=== PATIENT | male | born 1940 | race Caucasian/White ===

== ENCOUNTER 2023-08-28 08:54 | Inpatient (IN) | payer MEDICARE, OTHER, SELFPAY ==
[2023-08-28] VITALS (12 sets, daily range): BP systolic 92–126; BP diastolic 48–66; PULSE 60–85; RESP 16–20; TEMP 36.3–37.1; O2SAT 95–100; BMI 25.9
[2023-08-28 09:59] LABS: Basophils % 0.2 %; Eosinophils # 0.1 10^3/uL (0.0-0.8); Eosinophils % 0.7 %; Hematocrit 36.4 % (37-53); Lymphocytes # 0.8 10^3/uL (0.8-4.8); Lymphocytes % 5.9 %; Mean Corpuscular HGB Conc 33.2 g/dL (30-55); Mean Corpuscular Hemoglobin 29.7 pg (27-33); Mean Corpuscular Volume 89.4 fl (82-101); Mean Platelet Volume 9.7 fL (7.4-10.4); Monocytes # 1.2 10^3/uL (0.2-0.9); Monocytes % 8.7 %; Neutrophils % 83.6 %; Nucleated Red Blood Cells % 0 %; Platelet Count 213 10^3/cmm (157-399); Red Blood Count 4.07 10^6/uL (3.85-5.65); Red Cell Distribution Width 13.8 % (12.1-15.1); White Blood Count 13.64 10^3/uL (3.29-11.43)
--- NOTE | 2023-08-28 10:08 | ED_ITS ---
HPI - Nausea/Vomiting/Diarrhea General: Chief complaint: Nausea/Vomiting/Diarrhea Stated complaint: not eating,N/V/D Time Seen by Provider: 08/28/23 09:32 Source: patient Mode of arrival: ambulatory History of Present Illness: 82-year-old male presents emergency room nausea vomiting diarrhea for last 3 to 4 days. No hematochezia melena hematemesis coffee-ground emesis denies fever sweats chills no chest pain or shortness of breath. He has noticed that eating does make his symptoms worse. Patient complaining of generalized abdominal pain that he localizes to the left lower quadrant and periumbilical. MD elicited complaint: nausea and vomiting Description of diarrhea: mucus and semi-solid Associated nausea: Yes Associated abdominal pain: Yes Location of pain: LLQ Radiation: periumbilical Pain consistency: constant Severity: severe Quality: cramping Exacerbating factors: eating Relieving factors: other (Fasting) Associated symtoms: Reports anorexia, malaise and nausea; Denies altered mental status, anxiety, bloating, change in vision, chest pain, cough, diaphoresis, decreased urine output, dizziness, dysuria, epistaxis, fatigue, fecal incontinence, fevers/chills, headache(s), myalgias, numbness, palpitations, rash, short of breath, syncope, tenesmus, tinnitus or weakness Review of Systems Const: Reports: malaise; Denies: fever(s), chills, fatigue or diaphoresis Eyes: Denies: change in vision ENMT: Denies: tinnitus or epistaxis Card: Denies: chest pain, palpitations or syncope Resp: Denies: dyspnea GI: Reports: abdominal pain, nausea and vomiting; Denies: bloating or fecal incontinence : Denies: dysuria, urinary frequency or urinary urgency Musc: Denies: neck pain or back pain Skin/Breast: Denies: rash Neuro: Denies: headache(s) or dizziness Psych: Denies: anxiety PFSH ED PFSH: Medical History (Updated 09/03/23 @ 07:25 by Gentry Munguia DO) History of essential hypertension Surgical History (Updated 08/28/23 @ 13:23 by Kvng Montilla MD) History of knee replacement Family History (Updated 08/28/23 @ 13:25 by Kvng Montilla MD) Mother Dementia Social History (Updated 08/28/23 @ 13:23 by Kvng Montilla MD) Smoking and tobacco/nicotine status: never used tobacco/nicotine Alcohol intake: never Substance/Drug Use: never Physical Exam Const: COMMON NORMALS: no acute distress EXAM LIMITATIONS: no altered mental status GENERAL APPEARANCE: cooperative and comfortable ORIENTATION/CONSCIOUSNESS: Yes awake, Yes oriented to person, Yes oriented to place and Yes oriented to time HENMT: COMMON NORMALS: normocephalic, atraumatic and hearing grossly normal bilaterally HEAD & SCALP: normocephalic and atraumatic Resp: COMMON NORMALS: normal respiratory effort, No retractions, No use of accessory muscles and clear to auscultation bilaterally AUSCULTATION: clear to auscultation bilaterally Cardio: COMMON NORMALS: regular rate, regular rhythm and No murmurs present (Cardio) RATE: regular rate RHYTHM: regular rhythm GI: COMMON NORMALS: Soft to palpation and No hepatosplenomegaly present AUSCULTATION: Yes normoactive bowel sounds PALPATION: Yes Soft to palpation, No Tenderness to palpation present (GI), No Guarding due to palpation present (GI) and Yes No hepatosplenomegaly present Extremity: COMMON NORMALS: normal to inspection, capillary refill normal, no clubbing, cyanosis or edema, no calf tenderness and no pedal edema Neuro: SENSORIUM/ORIENTATION: Yes oriented to person, Yes oriented to place and Yes oriented to time Skin: COMMON NORMALS: no rashes or lesions noted GENERAL SKIN EXAM: no rashes or lesions noted Course Vital Signs: Vital signs: Vital Signs Temperature 98.0 F 08/31/23 15:51 Pulse Rate 65 08/31/23 15:51 Respiratory Rate 20 H 08/31/23 15:51 Blood Pressure 120/67 08/31/23 15:51 Pulse Oximetry 98 08/31/23 15:51 Oxygen Delivery Me thod Room Air 08/30/23 12:00 Oxygen Flow Rate 2 08/28/23 16:07 MDM - Nausea/Vomiting/Diarrhea Medical Decision Making Diverticulitis with perforation and abscess formation and acute kidney injury discussed with hospitalist under general surgery admit IV fluids for resuscitation General surgery has seen the patient in the emergency room. Orders written Medical Records I reviewed the patient's medical records. Lab Data I reviewed the patient's lab results. 08/31/23 02:58 08/31/23 02:58 Laboratory Results WBC 13.64 10^3/uL (3.29-11.43) H 08/28/23 09:42 RBC 4.07 10^6/uL (3.85-5.65) 08/28/23 09:42 Hgb 12.10 g/dL (11.27-16.99) 08/28/23 09:42 Hct 36.4 % (37-53) L 08/28/23 09:42 MCV 89.4 fl (82-101) 08/28/23 09:42 MCH 29.7 pg (27-33) 08/28/23 09:42 MCHC 33.2 g/dL (30-55) 08/28/23 09:42 RDW 13.8 % (12.1-15.1) 08/28/23 09:42 Plt Count 213 10^3/cmm (157-399) 08/28/23 09:42 MPV 9.7 fL (7.4-10.4) 08/28/23 09:42 Neut % (Auto) 83.6 % 08/28/23 09:42 Lymph % (Auto) 5.9 % 08/28/23 09:42 [place] % (Auto) 8.7 % 08/28/23 09:42 Eos % (Auto) 0.7 % 08/28/23 09:42 Baso % (Auto) 0.2 % 08/28/23 09:42 Neut # (Auto) 11.40 10^3/uL (1.8-7.7) H 08/28/23 09:42 Lymph # (Auto) 0.8 10^3/uL (0.8-4.8) 08/28/23 09:42 [place] # (Auto) 1.2 10^3/uL (0.2-0.9) H 08/28/23 09:42 Eos # (Auto) 0.1 10^3/uL (0.0-0.8) 08/28/23 09:42 Baso # (Auto) 0.0 10^3/uL (0.0-0.1) 08/28/23 09:42 Nucleated RBC % (auto) 0 % 08/28/23 09:42 Nucleated RBCs # 0.0 /100WBC 08/28/23 09:42 Sodium 135 mmol/L (136-145) L 08/28/23 09:42 Potassium 3.7 mmol/L (3.5-5.1) 08/28/23 09:42 Chloride 101 mmol/L (98-107) 08/28/23 09:42 Carbon Dioxide 18 mmol/L (22-29) L 08/28/23 09:42 Anion Gap 19.7 (5-19) H 08/28/23 09:42 BUN 88 mg/dL (8-23) H* 08/28/23 09:42 Creatinine 3.5 mg/dL (0.7-1.2) H 08/28/23 09:42 GFR Calculation Not Reportable 08/28/23 09:42 Glucose 119 mg/dL (65-115) H 08/28/23 09:42 Calculated Osmolality 308 mOsm/kg (285-295) H 08/28/23 09:42 Lactic Acid 0.9 mmol/L (0.5-2.2) 08/28/23 11:50 Calcium 8.4 mg/dL (8.5-10.5) L 08/28/23 09:42 Total Bilirubin 0.6 mg/dL (0.15-1.2) 08/28/23 09:42 AST 24 U/L (0-40) 08/28/23 09:42 ALT 26 U/L (0-41) 08/28/23 09:42 Alkaline Phosphatase 81 U/L (40-130) 08/28/23 09:42 Total Protein 6.9 g/dL (6.6-8.7) 08/28/23 09:42 Albumin 3.6 g/dL (3.5-5.2) 08/28/23 09:42 Globulin 3.3 g/dL (1.3-4.6) 08/28/23 09:42 Lipase 30 U/L (13-60) 08/28/23 09:42 Procalcitonin 0.75 ng/mL (0-0.5) H 08/28/23 09:42 Urine Color Yellow (Yellow) 08/28/23 11:50 Urine Appearance Sl hazy (CLEAR) A 08/28/23 11:50 Urine pH 5 (5-7) 08/28/23 11:50 Ur Specific Huntley 1.015 (1.005-1.030) 08/28/23 11:50 Urine Protein Trace (Negative) 08/28/23 11:50 Urine Glucose (UA) Norm (Normal) 08/28/23 11:50 Urine Ketones Negative (Negative) 08/28/23 11:50 Urine Blood Neg (Negative) 08/28/23 11:50 Urine Nitrate Negative (Negative) 08/28/23 11:50 Urine Bilirubin Neg (Negative) 08/28/23 11:50 Urine Urobilinogen Norm mg/dL (Negative) 08/28/23 11:50 Ur Leukocyte Esterase Negative (Negative) 08/28/23 11:50 Urine RBC 0-4 /hpf (0-2) H 08/28/23 11:50 Urine WBC 0-4 /hpf (0-5) H 08/28/23 11:50 Ur Squamous Epith Cells 0-4 /hpf (0-5) H 08/28/23 11:50 Amorphous Sediment 3+ /hpf 08/28/23 11:50 Urine Bacteria Trace /hpf (NONE) 08/28/23 11:50 All radiology interpretation(s) finalized by discharge Discharge Plan Discharge Patient Disposition: Admitted As Inpatient Admit Provider: Kvng Montilla Clinical Impression: KRYSTEN (acute kidney injury), Diverticulitis of intestine with perforation and abscess Condition: Stable Discharge Diet: Full LIquid Discharge Activity: Resume usual activity Coding Level of Care Code ED Medical Social Worker for Dante Reaves
[2023-08-28 10:14] LABS: Alanine Aminotransferase 26 U/L (0-41); Albumin Level 3.6 g/dL (3.5-5.2); Alkaline Phosphatase 81 U/L (40-130); Anion Gap 19.7 (5-19); Aspartate Amino Transferase 24 U/L (0-40); Calcium 8.4 mg/dL (8.5-10.5); Carbon Dioxide 18 mmol/L (22-29); Chloride 101 mmol/L (98-107); Globulin 3.3 g/dL (1.3-4.6); Glucose 119 mg/dL (65-115); Lipase 30 U/L (13-60); Osmolality Calculated 308 mOsm/kg (285-295); Potassium 3.7 mmol/L (3.5-5.1); Sodium 135 mmol/L (136-145); Total Bilirubin 0.6 mg/dL (0.15-1.2); Total Protein 6.9 g/dL (6.6-8.7)
[2023-08-28 10:27] LABS: Blood Urea Nitrogen 88 mg/dL (8-23)
--- NOTE | 2023-08-28 10:35 | CT_ITS ---
WS: [id number] CT ABDOMEN AND PELVIS NONCONTRAST HISTORY: Abdominal pain TECHNIQUE: Imaging performed through the abdomen and pelvis. Coronal and sagittal reformats are submi tted. All CT scans at [facility] use at least one of these dose optimization techniques: auto mated exposure control; mA and/or kV adjustment per patient size (includes targeted exams where dose is matched to clinical indication); or iterative reconstruction. DLP: 1074.87 mGy.cm COMPARISON: None available. Lower thorax: Hyperexpanded lungs. No pneumonia. Moderate cardiomegaly. Moderate hiatal hernia. Liver: Normal size liver. There are a few scattered areas of decreased attenuation which cannot be ch aracterized further on this exam. No bile duct dilatation. Gallbladder: Cholelithiasis without evidence for acute cholecystitis. No bile duct dilatation. Pancreas: Diffuse atrophy. Spleen: Normal. Adrenal glands: Normal. No mass. Right kidney: Mild perinephric stranding. No obstruction. Low-attenuation mass mid kidney is probably a cyst but cannot be characterized completely. Left kidney: Perinephric stranding. Low-attenuation masses and calcifications. No obstruction. Aorta: Mild atherosclerosis abdominal aorta with no aneurysm. GI tract: At the mesenteric root is a fluid collection and free air consistent with GI tract perforat ion. There is a developing abscess at the mesenteric root. The abscess measures at least 5.0 x 4.3 cm . This collection is an interloop abscess and contiguous with both the small bowel and very closely a ssociated with diverticulosis in the sigmoid colon. There are dilated adjacent small bowel loops cons istent with an ileus. There are multiple foci of air present. There is also mesenteric edema. The torie endix is not identified. There are numerous diverticula throughout the distal colon. Abdominal wall: Negative. No hernia. Pelvis: No free fluid in the pelvis. Urinary bladder is distended. Marked enlargement of the prostate gland measuring 7.2 x 7.2 cm encroaching into the base of the bladder. Patient has a large hydrocele . Hydrocele is displacing the testicles to the RIGHT. Osseous structures: Advanced degenerative changes throughout the lumbar spine. IMPRESSION: 1. Acute GI tract perforation with free air and interloop developing abscess in the central mesenter y. Developing abscess is encased by small bowel and adjacent sigmoid. Favor this is probably a perfor ation secondary to acute sigmoid diverticulitis. The appendix is not identified. 2. Cholelithiasis without acute cholecystitis. 3. Mild perinephric stranding. 4. Small bowel ileus.
[2023-08-28] MEDS: ondansetron 2 mg/ML SDV 2 mL 4 MG IVP (11:25)
[2023-08-28] MEDS: pantoprazole 40 mg SDV IVP ×2 (11:25→17:35)
[2023-08-28] MEDS: sodium chloride 0.9% 1,000 ML 999 ML IV (11:25)
[2023-08-28 12:10] LABS: Add Urine Culture? No; Add Urine Microscopic? YES; Amorphous Sediment Urine 3+ /hpf; Bacteria Urine TRACE /hpf; Bilirubin Urine Neg (Negative); Blood Urine Neg (Negative); Glucose Urine UA Norm (Normal); Ketones Urine Negative (Negative); Leukocyte Esterase Urine Negative (Negative); Nitrate Urine Negative (Negative); Protein Urine Trace (Negative); RBC Urine 0-4 /hpf (0-2); Specific Gravity, Urine 1.015 (1.005-1.030); Squamous Epithelial Cell Urine 0-4 /hpf (0-5); Urine Appearance SL Hazy (CLEAR); Urine Color Yellow (Yellow); Urobilinogen Urine Norm (Negative); WBC Urine 0-4 /hpf (0-5); pH Urine 5 (5-7)
[2023-08-28 12:16] LABS: Lactic Sepsis W/Reflex 0.9 mmol/L (0.5-2.2)
--- NOTE | 2023-08-28 12:28 | P.CONIM_ITS ---
Providers/Reason For Consult Consulting Physician/Specialty*: Dr. Henry Castro, DO/General surgery Reason for Consult*: Perforated diverticulitis History of Present Illness History of Present Illness Jesus Moura is a 82 year old male who presented to the hospital with 3-day h istory of lower abdominal pain nausea and vomiting. He reports that his pain is sharp and constant and radiates to his back. Palpation makes pain worse. Nothing makes pain better. He endorses nausea and vomiting but denies any hematemesis. He reports diarrhea but denies any hematochezia and/or melena. CT of the abdomen pelvis shows diverticulitis complicated by microperforation. There is no gross free air. He has never had diverticulitis before and has never had abdominal surgery. He denies any fever or chills Review of Systems General: Reports: 10 or more systems reviewed and unremarkable except in HPI and below Medications/Allergies Home Medications Medication Instructions Recorded Confirmed Last Taken Type lisinopril 10 2 tab PO QAM 08/28/23 08/28/23 08/28/23 History mg-hydrochlorothiazide 12.5 mg tablet tamsulosin 0.4 mg capsule 0.4 mg PO BID 08/28/23 08/28/23 08/28/23 History Allergies Allergy/AdvReac Type Severity Reaction Status Date / Time No Known Allergies Allergy Unverified 08/28/23 10:37 Vitals/I&O/Wt Last Vital Signs Temp 97.4 F L 08/28/23 09:25 Pulse 68 08/28/23 12:18 Resp 20 H 08/28/23 12:18 BP 103/48 08/28/23 12:18 Pulse Ox 99 08/28/23 12:18 O2 Del Method Room Air 08/28/23 12:18 Weight last 48 hrs Weight 181 lb Physical Exam Narrative: General : Patient is well developed , no acute distress, oriented x3 Head : Normal cephalic, a-traumatic. Ears : Pinnae and external canal are normal. He is hard of hearing l. Eyes : PERRLA, Sclera and injection are normal. No conjunctival discharge. Nose : Mucous membranes are without erythema. Throat : buccal mucosa is normal, gums are without significant recession or hypertrophy. Lungs : Equal chest rise bilaterally, no use of accessory muscles, trachea is midline. Cor : Rate and rhythm are normal. Abdomen : Soft, mild distention, mild tenderness to palpation suprapubically, no g/r/m Extremities : No edema, no cyanosis or clubbing, dorsalis pedis pulses are present bilaterally, non-tender to palpation of calves. Upper extremities are normal bilaterally. Back : non-tender to palpation, no CVA tenderness. Neuro : CN II - XII intact, Upper and lower extremities have equal and full strength Data 08/28/23 09:42 08/28/23 09:42 Micro: Microbiology 08/28/23 11:55 Blood Culture - Preliminary Blood SPECIMEN COLLECTED 08/28/23 11:50 Blood Culture - Preliminary Blood SPECIMEN COLLECTED A&P Assessment and plan (1) Diverticulitis of large intestine with complication: (2) KRYSTEN (acute kidney injury): Plan IV fluids IV antibiotics Pain control N.p.o. Conservative management for now. There is no free air on CT. He will need a colonoscopy in 4 to 6 weeks followed by elective sigmoidectomy. If he gets worse he will likely need a Nieves's procedure during this hospital stay. Medical management per hospitalist Coding Level of Care Code 08097 Diagnoses Diverticulitis of large intestine with complication K57.32 KRYSTEN (acute kidney injury) N17.9
[2023-08-28] MEDS: piperacillin-tazobactam 3.375 GM in sodium chloride 0.9% (plus) 50 ML IV ×2 (12:30→21:15)
--- NOTE | 2023-08-28 13:22 | P.HP_ITS ---
Providers/Chief Complaint Chief Complaint: not eating,N/V/D History of Present Illness Jesus Moura is a 82 year old male with a past medical history of hypertension, history of pyelonephritis, history of urinary retention, who presents to [facility] due to abdominal pain, distention, nausea, vomiting, liquid stools, since Thursday. Patient tells me that he has a regular bowel movement every day, but on Thursday he started developing abdominal pain, distention, he had bilious vomiting, no lightheadedness, dizziness, no chest pain, he tells me that since then he has had liquidy bowel movements, no bloody or black stools, he has had a poor appetite, increased abdominal distention, abdominal pain, denies a history of diverticulitis in the past, denies bloody or black stools, no history of colonoscopy, no history of EGD, in the emergency room he was diagnosed with perforated diverticulitis, with abscess, general surgery has been consulted, due to his KRYSTEN, hospitalist team has been called for admission, he has received antibiotic therapy, currently he is alert and awake, following all commands, daughter is at bedside Review of Systems Const: Denies: fever(s) or chills Card: Denies: chest pain Resp: Denies: dyspnea GI: Reports: abdominal pain, nausea, vomiting and diarrhea : Denies: flank pain Musc: Denies: neck pain or back pain Skin/Breast: Denies: rash Neuro: Denies: headache(s) or numbness in extremities Endo: Denies: polyuria Medications/Allergies Home Medications Medication Instructions Recorded Confirmed Last Taken Type lisinopril 10 2 tab PO QAM 08/28/23 08/28/23 08/28/23 History mg-hydrochlorothiazide 12.5 mg tablet tamsulosin 0.4 mg capsule 0.4 mg PO BID 08/28/23 08/28/23 08/28/23 History Allergies Allergy/AdvReac Type Severity Reaction Status Date / Time No Known Allergies Allergy Unverified 08/28/23 10:37 PFSH Acute PFSH: Medical History (Updated 08/28/23 @ 13:26 by Kvng Montilla MD) History of essential hypertension Surgical History (Updated 08/28/23 @ 13:23 by Kvng Montilla MD) History of knee replacement Family History (Updated 08/28/23 @ 13:25 by Kvng Montilla MD) Mother Dementia Social History (Updated 08/28/23 @ 13:23 by Kvng Montilla MD) Smoking and tobacco/nicotine status: never used tobacco/nicotine Alcohol intake: never Substance/Drug Use: never Vitals/I&O/Wt Last Vital Signs Temp 97.4 F L 08/28/23 09:25 Pulse 68 08/28/23 12:18 Resp 20 H 08/28/23 12:18 BP 103/48 08/28/23 12:18 Pulse Ox 99 08/28/23 12:18 O2 Del Method Room Air 08/28/23 12:18 Weight last 48 hrs Weight 82.1 kg Physical Exam Const: COMMON NORMALS: no acute distress and patient oriented x3 HENMT: COMMON NORMALS: normocephalic HEAD & SCALP: normocephalic Eye: COMMON NORMALS: Equal, round and reactive pupils present and EOMs intact bilaterally Neck/C-Spine: COMMON NORMALS: no JVD Lymph: LYMPHATIC: no lymphadenopathy noted Chest: COMMONS NORMALS: normal inspection of the chest Resp: COMMON NORMALS: normal respiratory effort, No retractions, No use of accessory muscles and clear to auscultation bilaterally AUSCULTATION: clear to auscultation bilaterally Cardio: COMMON NORMALS: regular rate, regular rhythm, S1 normal heart sound pr esent and S2 normal heart sound present RATE: regular rate RHYTHM: regular rhythm HEART SOUNDS: S1 normal heart sound present and S2 normal heart sound present GI: OTHER: Abdomen is soft, distended, decreased bowel sounds in all 4 quadrants, diffuse t enderness, no guarding, no rebound, no rigidity : COMMON NORMALS: Yes no CVA tenderness Extremity: COMMON NORMALS: no pedal edema Neuro: COMMON NORMALS: patient oriented x3, CN's II-XII intact bilaterally, moves all extremities and no focal motor deficits Psych: COMMON NORMALS: mental status grossly normal Data 08/28/23 09:42 08/28/23 09:42 Micro: Microbiology 08/28/23 11:55 Blood Culture - Preliminary Blood SPECIMEN COLLECTED 08/28/23 11:50 Blood Culture - Preliminary Blood SPECIMEN COLLECTED A&P Assessment and plan (1) Diverticulitis of large intestine with complication: (2) Diverticulitis of intestine with perforation and abscess: (3) KRYSTEN (acute kidney injury): Plan IMPRESSION: 1.? Acute GI tract perforation with free air and interloop developing abscess in the central mesentery. Developing abscess is encased by small bowel and adjacent sigmoid. Favor this is probably a perforation secondary to acute sigmoid diverticulitis. The appendix is not identified. 2.? Cholelithiasis without acute cholecystitis. 3.? Mild perinephric stranding. 4.? Small bowel ileus. Perforated diverticulitis, with intra-abdominal abscess ? Plan ? Keep n.p.o., ?, IV fluids at 125 cc ? Place Moore catheter monitor urine output monitor creatinine monitor potassium, ? Broad-spectrum antibiotic therapy vancomycin, Zosyn, ? Serial abdominal exams, ? Monitor urine output, ? Lovenox for DVT prophylaxis, ? Full code, ? General surgery has been consulted, Attestations Medical Necessity Statement*: Patient requires hospitalization for perforated diverticulitis, with intra- abdominal abscess, inpatient, greater than 2 midnights Diagnoses Diverticulitis of large intestine with complication K57.32 Diverticulitis of intestine with perforation and abscess K57.80 KRYSTEN (acute kidney injury) N17.9
[2023-08-28 14:17] LABS: Procalcitonin 0.75 ng/mL (0-0.5)
--- NOTE | 2023-08-28 17:28 | PC.PHAR ---
[id number] VANCOMYCIN - pt renal function requires longer frequency. standard dosing requested, 1250 q 48h trough before 3rd dose 09/01 @1648
[2023-08-28] MEDS: sodium chloride 0.9% 1,000 ML 125 ML IV (17:36)
[2023-08-28] MEDS: vancomycin 1,250 MG/250 ML PIGGYBACK 250 MG IV (17:37)
[2023-08-28] MEDS: tamsulosin 0.4 mg Capsule PO (17:38)
[2023-08-28] MEDS: enoxaparin 30 mg/0.3 mL Syringe SUBCUT (17:38)
[2023-08-28] MEDS: morphine 4 mg/mL SDV 1 mL 2 MG IVP (18:42)
[2023-08-29] VITALS (9 sets, daily range): BP systolic 97–119; BP diastolic 49–63; PULSE 57–84; RESP 17–20; TEMP 36.4–37.2; O2SAT 96–99
[2023-08-29] MEDS: sodium chloride 0.9% 1,000 ML 125 ML IV ×4 (00:48→22:48)
[2023-08-29] MEDS: pantoprazole 40 mg SDV IVP ×2 (04:44→16:36)
[2023-08-29 05:29] LABS: Basophils % 0.4 %; Eosinophils # 0.1 10^3/uL (0.0-0.8); Eosinophils % 1.4 %; Hematocrit 32.2 % (37-53); Lymphocytes # 1.2 10^3/uL (0.8-4.8); Lymphocytes % 11.9 %; Mean Corpuscular Hemoglobin 28.8 pg (27-33); Mean Corpuscular Volume 89.9 fl (82-101); Mean Platelet Volume 9.9 fL (7.4-10.4); Monocytes # 1.1 10^3/uL (0.2-0.9); Monocytes % 10.3 %; Neutrophils # 7.67 10^3/uL (1.8-7.7); Neutrophils % 74.9 %; Nucleated Red Blood Cells % 0 %; Platelet Count 184 10^3/cmm (157-399); Red Blood Count 3.58 10^6/uL (3.85-5.65); Red Cell Distribution Width 13.9 % (12.1-15.1); White Blood Count 10.23 10^3/uL (3.29-11.43)
[2023-08-29 05:50] LABS: Estmated Average Glucose 111; Hemoglobin A1C 5.5 % (4.0-6.0)
[2023-08-29 06:01] LABS: Cholesterol 98 mg/dL (0-200); HDL Cholesterol 14 mg/dL (60-100); LDL Cholesterol Calculated 55 mg/dL (50-129); LDL HDL Ratio 3.93 RATIO (0.00-3.22); Lactic Sepsis W/Reflex 0.6 mmol/L (0.5-2.2); Triglycerides 143 mg/dL (0-150)
[2023-08-29 06:10] LABS: Alanine Aminotransferase 23 U/L (0-41); Albumin Level 2.8 g/dL (3.5-5.2); Alkaline Phosphatase 90 U/L (40-130); Aspartate Amino Transferase 24 U/L (0-40); Blood Urea Nitrogen 66 mg/dL (8-23); Calcium 7.8 mg/dL (8.5-10.5); Carbon Dioxide 16 mmol/L (22-29); Chloride 111 mmol/L (98-107); Globulin 2.8 g/dL (1.3-4.6); Glucose 91 mg/dL (65-115); Magnesium 1.8 mg/dL (1.7-2.3); Osmolality Calculated 307 mOsm/kg (285-295); Sodium 139 mmol/L (136-145); Total Bilirubin 0.6 mg/dL (0.15-1.2); Total Protein 5.6 g/dL (6.6-8.7)
[2023-08-29] MEDS: piperacillin-tazobactam 3.375 GM in sodium chloride 0.9% (plus) 50 ML IV ×2 (08:16→21:09)
[2023-08-29] MEDS: tamsulosin 0.4 mg Capsule PO ×2 (08:17→16:36)
--- NOTE | 2023-08-29 11:26 | PM.PN ---
Subjective Subjective: Patient seen and examined. He reports minimal to no abdominal pain. Denies any nausea or vomiting. Positive flatus. No bowel movement yet Vitals/I&O/Wt Last Vital Signs Temp 97.5 F L 08/29/23 07:49 Pulse 59 L 08/29/23 07:49 Resp 20 H 08/29/23 07:49 BP 103/49 08/29/23 07:49 Pulse Ox 96 08/29/23 07:49 O2 Del Method Room Air 08/29/23 07:49 O2 Flow Rate 2 08/28/23 16:07 08/28/23 08/29/23 08/29/23 22:59 06:59 14:59 Intake Total 1300 / 1300 3413 / 4713 1000 / 1000 Output Total 1125 / 1125 750 / 1875 Balance 175 / 175 2663 / 2838 1000 / 1000 Weight last 48 hrs Weight 181 lb Physical Exam Narrative: General: No acute distress, awake alert and oriented x3 Abdomen: Soft, mildly distended, nontender, no guarding rebound or masses Data 08/29/23 04:46 08/29/23 04:46 Micro: Microbiology 08/28/23 11:55 Blood Culture - Preliminary Blood SPECIMEN COLLECTED 08/28/23 11:50 Blood Culture - Preliminary Blood SPECIMEN COLLECTED A&P Assessment and plan (1) Diverticulitis of large intestine with complication: (2) KRYSTEN (acute kidney injury): Plan IV fluids IV antibiotics Pain control Clear liquid diet Conservative management for now. There is no free air on CT. He will need a colonoscopy in 4 to 6 weeks followed by elective sigmoidectomy. If he gets worse he will likely need a Nieves's procedure during this hospital stay. Medical management per hospitalist Attestations Medical Necessity Statement*: Per primary Coding Level of Care Code 97283 Diagnoses Diverticulitis of large intestine with complication K57.32 KRYSTEN (acute kidney injury) N17.9
--- NOTE | 2023-08-29 13:06 | PM.PN ---
Subjective Subjective: Patient was seen this morning, he is sitting up to the side of the bed, family members at bedside, he does report that he had 1 episode of passing gas, has not passed any stool, no nausea, no vomiting Vitals/I&O/Wt Last Vital Signs Temp 97.7 F 08/29/23 11:38 Pulse 84 08/29/23 11:38 Resp 20 H 08/29/23 11:38 BP 117/63 08/29/23 11:38 Pulse Ox 98 08/29/23 11:38 O2 Del Method Room Air 08/29/23 11:38 O2 Flow Rate 2 08/28/23 16:07 08/28/23 08/29/23 08/29/23 22:59 06:59 14:59 Intake Total 1300 / 1300 3413 / 4713 1110 / 1110 Output Total 1125 / 1125 750 / 1875 Balance 175 / 175 2663 / 2838 1110 / 1110 Weight last 48 hrs Weight 82.1 kg Physical Exam Const: COMMON NORMALS: no acute distress and patient oriented x3 Resp: COMMON NORMALS: normal respiratory effort, No retractions, No use of accessory muscles and clear to auscultation bilaterally AUSCULTATION: clear to auscultation bilaterally Cardio: COMMON NORMALS: regular rate, regular rhythm, S1 normal heart sound present and S2 normal heart sound present RATE: regular rate RHYTHM: regular rhythm HEART SOUNDS: S1 normal heart sound present and S2 normal heart sound present GI: OTHER: Abdomen is soft, distended, decreased bowel sounds in all 4 quadrants, no guarding, no rebound, nor rigidity Extremity: COMMON NORMALS: no pedal edema Neuro: COMMON NORMALS: patient oriented x3 Psych: COMMON NORMALS: mental status grossly normal Data 08/29/23 04:46 08/29/23 04:46 Micro: Microbiology 08/28/23 11:50 Blood Culture - Preliminary Blood NEGATIVE TO DATE 08/28/23 11:55 Blood Culture - Preliminary Blood NEGATIVE TO DATE A&P Assessment and plan (1) Diverticulitis of large intestine with complication: (2) Diverticulitis of intestine with perforation and abscess: (3) KRYSTEN (acute kidney injury): Plan IMPRESSION: 1.? Acute GI tract perforation with free air and interloop developing abscess in the central mesentery. Developing abscess is encased by small bowel and adjacent sigmoid. Favor this is probably a perforation secondary to acute sigmoid diverticulitis. The appendix is not identified. 2.? Cholelithiasis without acute cholecystitis. 3.? Mild perinephric stranding. 4.? Small bowel ileus. Perforated diverticulitis, with intra-abdominal abscess ? Plan ? Keep n.p.o., ?, IV fluids at 125 cc ? Place Moore catheter monitor urine output monitor creatinine monitor potassium, ? Broad-spectrum antibiotic therapy vancomycin, Zosyn, ? Serial abdominal exams, ? Monitor urine output, ? Lovenox for DVT prophylaxis, ? Full code, ? General surgery has been consulted, Attestations Medical Necessity Statement*: Patient requires hospitalization for perforated diverticulitis, KRYSTEN, Diagnoses Diverticulitis of large intestine with complication K57.32 Diverticulitis of intestine with perforation and abscess K57.80 KRYSTEN (acute kidney injury) N17.9
[2023-08-29] MEDS: enoxaparin 30 mg/0.3 mL Syringe SUBCUT (16:36)
[2023-08-30] VITALS (8 sets, daily range): BP systolic 108–157; BP diastolic 51–73; PULSE 48–90; RESP 18–20; TEMP 36.2–37.2; O2SAT 94–99
[2023-08-30] MEDS: pantoprazole 40 mg SDV IVP ×2 (03:28→17:54)
[2023-08-30 04:59] LABS: Basophils # 0.1 10^3/uL (0.0-0.1); Basophils % 0.6 %; Eosinophils # 0.1 10^3/uL (0.0-0.8); Eosinophils % 1.6 %; Hematocrit 31.9 % (37-53); Lymphocytes # 1.5 10^3/uL (0.8-4.8); Lymphocytes % 16.6 %; Mean Corpuscular HGB Conc 32.6 g/dL (30-55); Mean Corpuscular Hemoglobin 29.5 pg (27-33); Mean Corpuscular Volume 90.4 fl (82-101); Mean Platelet Volume 9.4 fL (7.4-10.4); Monocytes # 0.8 10^3/uL (0.2-0.9); Monocytes % 9.3 %; Neutrophils # 6.17 10^3/uL (1.8-7.7); Neutrophils % 69.9 %; Nucleated Red Blood Cells % 0 %; Platelet Count 211 10^3/cmm (157-399); Red Blood Count 3.53 10^6/uL (3.85-5.65); Red Cell Distribution Width 14.1 % (12.1-15.1); White Blood Count 8.82 10^3/uL (3.29-11.43)
[2023-08-30 05:28] LABS: Alanine Aminotransferase 19 U/L (0-41); Albumin Level 2.6 g/dL (3.5-5.2); Alkaline Phosphatase 71 U/L (40-130); Blood Urea Nitrogen 42 mg/dL (8-23); Calcium 7.8 mg/dL (8.5-10.5); Carbon Dioxide 18 mmol/L (22-29); Chloride 113 mmol/L (98-107); Globulin 2.7 g/dL (1.3-4.6); Glucose 95 mg/dL (65-115); Magnesium 1.7 mg/dL (1.7-2.3); Osmolality Calculated 298 mOsm/kg (285-295); Phosphorus 2.2 mg/dL (2.5-4.5); Sodium 139 mmol/L (136-145); Total Bilirubin 0.6 mg/dL (0.15-1.2); Total Protein 5.3 g/dL (6.6-8.7)
[2023-08-30 05:31] LABS: Anion Gap 11.9 (5-19); Potassium 3.9 mmol/L (3.5-5.1)
[2023-08-30 05:48] LABS: Aspartate Amino Transferase 18 U/L (0-40)
[2023-08-30] MEDS: sodium chloride 0.9% 1,000 ML 125 ML IV ×2 (06:15→17:54)
[2023-08-30] MEDS: tamsulosin 0.4 mg Capsule PO ×2 (09:05→17:56)
[2023-08-30] MEDS: piperacillin-tazobactam 3.375 GM in sodium chloride 0.9% (plus) 50 ML IV ×2 (09:05→21:09)
--- NOTE | 2023-08-30 09:25 | PC.NURSE ---
Report received from SEBASTIAN Ramirez charge nurse.. Care assumed.
--- NOTE | 2023-08-30 12:40 | P.PN_ITS ---
Subjective Subjective: Patient seen and examined. Denies any abdominal pain. Positive BM. Tolerating clear liquid diet Vitals/I&O/Wt Last Vital Signs Temp 97.2 F L 08/30/23 08:00 Pulse 65 08/30/23 08:00 Resp 20 H 08/30/23 08:00 BP 123/73 08/30/23 08:00 Pulse Ox 98 08/30/23 08:00 O2 Del Method Room Air 08/30/23 08:00 O2 Flow Rate 2 08/28/23 16:07 08/29/23 08/30/23 08/30/23 22:59 06:59 14:59 Intake Total 2536.667 / 3646.667 981.25 / 4627.917 360 / 360 Output Total 1950 / 1949 750 / 2700 Balance 586.667 / 1696.667 231.25 / 1927.917 360 / 360 Physical Exam Narrative: General: No acute distress, awake alert and oriented x3 Abdomen: Soft, mildly distended, nontender, no guarding rebound or masses Data 08/30/23 04:38 08/30/23 04:38 Micro: Microbiology 08/28/23 11:50 Blood Culture - Preliminary Blood NEGATIVE TO DATE 08/28/23 11:55 Blood Culture - Preliminary Blood NEGATIVE TO DATE A&P Assessment and plan (1) Diverticulitis of large intestine with complication: (2) KRYSTEN (acute kidney injury): Plan IV fluids IV antibiotics Pain control Full liquid diet Conservative management for now. There is no free air on CT. He will need a colonoscopy in 4 to 6 weeks followed by elective sigmoidectomy. If he gets worse he will likely need a Nieves's procedure during this hospital stay. Repeat CT abdomen pelvis tomorrow Medical management per hospitalist Attestations Medical Necessity Statement*: Per primary Coding Level of Care Code Acute Code for [facility] Diagnoses Diverticulitis of large intestine with complication K57.32 KRYSTEN (acute kidney injury) N17.9
--- NOTE | 2023-08-30 15:21 | PM.PN ---
Subjective Subjective: Patient was seen this morning, sitting up to the side of the bed, family numbers at bedside, reports passing gas has not had a bowel movement no nausea, no vomiting, abdominal pain is well controlled, Vitals/I&O/Wt Last Vital Signs Temp 97.7 F 08/30/23 12:00 Pulse 69 08/30/23 12:00 Resp 20 H 08/30/23 12:00 BP 157/71 08/30/23 12:00 Pulse Ox 99 08/30/23 12:00 O2 Del Method Room Air 08/30/23 12:00 O2 Flow Rate 2 08/28/23 16:07 08/30/23 08/30/23 08/30/23 06:59 14:59 22:59 Intake Total 981.25 / 4627.917 840 / 840 Output Total 750 / 2700 Balance 231.25 / 1927.917 840 / 840 Physical Exam Const: COMMON NORMALS: no acute distress Resp: COMMON NORMALS: normal respiratory effort, No retractions, No use of accessory muscles and clear to auscultation bilaterally AUSCULTATION: clear to auscultation bilaterally Cardio: COMMON NORMALS: regular rate, regular rhythm, S1 normal heart sound present and S2 normal heart sound present RATE: regular rate RHYTHM: regular rhythm HEART SOUNDS: S1 normal heart sound present and S2 normal heart sound present GI: OTHER: Abdomen soft, distended, good bowel sounds, no guarding, no rebound, no rigidity, does have diffuse tenderness although minimal Extremity: COMMON NORMALS: no pedal edema Psych: COMMON NORMALS: mental status grossly normal Data 08/30/23 04:38 08/30/23 04:38 Micro: Microbiology 08/28/23 11:50 Blood Culture - Preliminary Blood NEGATIVE TO DATE 08/28/23 11:55 Blood Culture - Preliminary Blood NEGATIVE TO DATE A&P Assessment and plan (1) Diverticulitis of large intestine with complication: (2) Diverticulitis of intestine with perforation and abscess: (3) KRYSTEN (acute kidney injury): Plan IMPRESSION: 1.? Acute GI tract perforation with free air and interloop developing abscess in the central mesentery. Developing abscess is encased by small bowel and adjacent sigmoid. Favor this is probably a perforation secondary to acute sigmoid diverticulitis. The appendix is not identified. 2.? Cholelithiasis without acute cholecystitis. 3.? Mild perinephric stranding. 4.? Small bowel ileus. Perforated diverticulitis, with intra-abdominal abscess ? Plan ? Currently on full liquid diet ?, IV fluids at 125 cc ? Place Moore catheter monitor urine output monitor creatinine monitor potassium, ? Broad-spectrum antibiotic therapy vancomycin, Zosyn, ? Serial abdominal exams, ? Monitor urine output, ? Lovenox for DVT prophylaxis, ? Full code, ? General surgery has been consulted,, ? Plan on repeating CT of the abdomen tomorrow Attestations Medical Necessity Statement*: Patient requires hospitalization for perforated diverticulitis with abscess, requiring IV antibiotics and fluid therapy KRYSTEN, surgical consultation clinical monitoring Diagnoses Diverticulitis of large intestine with complication K57.32 Diverticulitis of intestine with perforation and abscess K57.80 KRYSTEN (acute kidney injury) N17.9
[2023-08-30] MEDS: vancomycin 1,250 MG/250 ML PIGGYBACK 250 MG IV (17:54)
[2023-08-30] MEDS: enoxaparin 30 mg/0.3 mL Syringe SUBCUT (17:55)
--- NOTE | 2023-08-30 18:48 | PC.NURSE ---
Shift summary:Pt has been up out of bed to chair most of shift. His family asked what they could do to held, I suggested walking with him, they immediately proceeded to ambulate in [place]. Pt stated his bottm burned when he passed gas this am , it must have been the medicine. His family assisted him with a shower. His scrotum is enlarged. Pt stated when he was having a BM urine squirted around his catheter, as he was trying to put the rest of the catheter u[ his penis, Encouraged pt to not do that it will make him sore and maybe cause infection. He verbalized understanding. Checked the carmen balloon, only partial filled, re-inflated with 10ml NS. Bowel sounds noted in all 4 quadrants the LLQ the least amount of noise. His abdomen remains distended but soft, pt denies pain. He did have a medium loosely formed green BM this afternoon.
[2023-08-31] VITALS (7 sets, daily range): BP systolic 109–134; BP diastolic 52–77; PULSE 57–69; RESP 16–20; TEMP 36.4–37.1; O2SAT 94–98
[2023-08-31] MEDS: sodium chloride 0.9% 1,000 ML 125 ML IV ×2 (01:16→10:04)
[2023-08-31 04:39] LABS: Basophils % 0.3 %; Eosinophils # 0.2 10^3/uL (0.0-0.8); Eosinophils % 2.1 %; Hematocrit 31.1 % (37-53); Lymphocytes # 1.6 10^3/uL (0.8-4.8); Lymphocytes % 18.3 %; Mean Corpuscular HGB Conc 32.5 g/dL (30-55); Mean Corpuscular Hemoglobin 29.4 pg (27-33); Mean Corpuscular Volume 90.7 fl (82-101); Mean Platelet Volume 9.4 fL (7.4-10.4); Monocytes # 0.8 10^3/uL (0.2-0.9); Monocytes % 8.8 %; Neutrophils # 5.94 10^3/uL (1.8-7.7); Neutrophils % 66.9 %; Nucleated Red Blood Cells % 0 %; Platelet Count 232 10^3/cmm (157-399); Red Blood Count 3.43 10^6/uL (3.85-5.65); White Blood Count 8.89 10^3/uL (3.29-11.43)
[2023-08-31 05:05] LABS: Alanine Aminotransferase 19 U/L (0-41); Albumin Level 2.6 g/dL (3.5-5.2); Alkaline Phosphatase 66 U/L (40-130); Anion Gap 12.8 (5-19); Aspartate Amino Transferase 17 U/L (0-40); Blood Urea Nitrogen 25 mg/dL (8-23); Calcium 7.9 mg/dL (8.5-10.5); Carbon Dioxide 19 mmol/L (22-29); Chloride 114 mmol/L (98-107); Globulin 2.6 g/dL (1.3-4.6); Glucose 102 mg/dL (65-115); Magnesium 1.6 mg/dL (1.7-2.3); Osmolality Calculated 299 mOsm/kg (285-295); Phosphorus 1.9 mg/dL (2.5-4.5); Potassium 3.8 mmol/L (3.5-5.1); Sodium 142 mmol/L (136-145); Total Bilirubin 0.6 mg/dL (0.15-1.2); Total Protein 5.2 g/dL (6.6-8.7)
[2023-08-31] MEDS: pantoprazole 40 mg SDV IVP (05:51)
[2023-08-31] MEDS: piperacillin-tazobactam 3.375 GM in sodium chloride 0.9% (plus) 50 ML IV (08:28)
[2023-08-31] MEDS: tamsulosin 0.4 mg Capsule PO (08:28)
--- NOTE | 2023-08-31 08:32 | CT_ITS ---
WS: [id number] CT ABDOMEN PELVIS TECHNIQUE: Contrast-enhanced CT of the abdomen and pelvis with coronal and sagittal reformatted image s. CLINICAL INFORMATION: intrabdominal abscess COMPARISON: CT 08/28/2023 DLP: 1066.[address] scans at [facility] use at least one of these dose optimization techniques: automated e xposure control; mA and/or kV adjustment per patient size (includes targeted exams where dose is matc hed to clinical indication); or iterative reconstruction. FINDINGS: Again seen is the previously described suspected GI tract perforation with interloop abscess in the c entral mesentery. Abscess appears slightly smaller today measuring 3.8 x 3.6 cm with air-fluid level. Surrounding small foci of air similar in appearance to previous. Associated mesenteric edema. Small bilateral pleural effusions. Interstitial edema in the lung bases. Tiny cholelithiasis. Mild di ffuse fatty filtration of the liver. Normal portal vein and splenic vein. Fatty atrophy of the pancre as. Adrenal glands are normal. Small bilateral renal cysts. No hydronephrosis in either kidney. Normal caliber abdominal aorta. Aortic calcification. Small esophageal hiatal hernia. Markedly enlarg ed heterogeneously enhancing prostate measuring 7.6 x 7.5 cm. Moore catheter in the bladder. Large LE FT hydrocele unchanged. Sigmoid diverticulosis. Small bowel ileus with air-fluid levels similar to pr evious. IMPRESSION: 1. Previously described abscess in the central mesentery with suspected bowel perforation appears sl ightly improved compared to previous measuring 3.8 x 3.6 cm today. Surrounding small bowel loops and adjacent sigmoid colon. 2. Small bilateral pleural effusions compressive atelectasis in the lung bases. 3. Small esophageal hernia. 4. Tiny cholelithiasis. 5. Markedly enlarged prostate with Moore catheter in the bladder. 6. Small bowel ileus.
[2023-08-31] MEDS: magnesium sulfate premix 2 GM/50 ML PIGGYBACK IV (10:03)
[2023-08-31] MEDS: iohexol 350 mg/mL 500 mL Btl (per mL) IV (10:03)
--- NOTE | 2023-08-31 12:02 | P.PN_ITS ---
Subjective Subjective: And seen and examined. He has no pain, is tolerating a diet and having bowel movements. Vitals/I&O/Wt Last Vital Signs Temp 97.5 F L 08/31/23 07:57 Pulse 61 08/31/23 07:57 Resp 20 H 08/31/23 07:57 BP 134/77 08/31/23 07:57 Pulse Ox 98 08/31/23 07:57 O2 Del Method Room Air 08/30/23 12:00 O2 Flow Rate 2 08/28/23 16:07 08/30/23 08/31/23 08/31/23 22:59 06:59 14:59 Intake Total 730 / 2620 1210.833 / 3830.833 1480 / 1480 Output Total 1150 / 1150 950 / 2100 Balance -420 / 1470 260.833 / 7288.142 6350 / 1480 Physical Exam Narrative: General: No acute distress, awake alert and oriented x3 Abdomen: Soft, mildly distended, nontender, no guarding rebound or masses Data 08/31/23 02:58 08/31/23 02:58 A&P Assessment and plan (1) Diverticulitis of large intestine with complication: (2) KRYSTEN (acute kidney injury): Plan IV fluids IV antibiotics Pain control Soft diet Conservative management for now. There is no free air on CT. He will need a colonoscopy in 4 to 6 weeks followed by elective sigmoidectomy. If he gets worse he will likely need a Nieves's procedure during this hospital stay. Repeat CT abdomen pelvis shows somewhat improved collection in central abdomen Recommend infectious disease consult for possible long-term IV antibiotics Medical management per hospitalist Attestations Medical Necessity Statement*: Per primary Coding Level of Care Code Acute Code for [facility] Diagnoses Diverticulitis of large intestine with complication K57.32 KRYSTEN (acute kidney injury) N17.9
--- NOTE | 2023-08-31 12:47 | P.DS_ITS ---
Discharge Providers Date of Admission: 08/28/23 11:57 Date of Discharge: August 31, 2023 Attending Provider at Admission: Kvng Montilla MD Attending Provider at Discharge: Kvng Montilla MD Diagnoses at Discharge Discharge Diagnosis (1) Diverticulitis of large intestine with complication: Status: Acute (2) KRYSTEN (acute kidney injury): Status: Acute Reason for Visit Reason for Visit: not eating,N/V/D Hospital Course Hospital Course Jesus Moura is a 82 year old male with a past medical history of hypertension, history of pyelonephritis, history of urinary retention, who presents to [facility] due to abdominal pain, distention, nausea, vomiting, liquid stools, since Thursday.? Patient tells me that he has a regular bowel movement every day, but on Thursday he started developing abdominal pain, distention, he had bilious vomiting, no lightheadedness, dizziness, no chest pain, he tells me that since then he has had liquidy bowel movements, no bloody or black stools, he has had a poor appetite, increased abdominal distention, abdominal pain, denies a history of diverticulitis in the past, denies bloody or black stools, no history of colonoscopy, no history of EGD, in the emergency room he was diagnosed with perforated diverticulitis, with abscess, general surgery has been consulted, due to his KRYSTEN, hospitalist team has been called for admission, he has received antibiotic therapy, currently he is alert and awake, following all commands, daughter is at bedside This is a 82-year-old male, who presents to [facility] for perforated diverticulitis with intra-abdominal abscess, admitted to [facility], general surgery was consulted, surgeon spoke to radiology, intra-abdominal abscess was difficult to access via needle, patient was medically managed during his hospitalization IV fluids, bowel rest, overall he remained afebrile, hemodynamically stable, blood cultures were negative so far, remained afebrile, diet was advanced, having bowel movements, passing gas from below. Patient will be discharged on 14 days of p.o. antibiotics, with close follow-up with general surgery in 2 weeks, repeat CT scan on discharge is as below IMPRESSION: 1.? Previously described abscess in the central mesentery with suspected bowel perforation appears slightly improved compared to previous measuring 3.8 x 3.6 cm today. Surrounding small bowel loops and adjacent sigmoid colon. 2.? Small bilateral pleural effusions compressive atelectasis in the lung bases. 3.? Small esophageal hernia. 4.? Tiny cholelithiasis. 5.? Markedly enlarged prostate with Moore catheter in the bladder. 6.? Small bowel ileus. ? Plan on repeating CT scan in 2 weeks, ? Complete 14 days of p.o. Cipro and Flagyl, ? Follow-up with general surgery in 2 weeks, ? Will be referred to colorectal surgeon through general surgery, ? Patient was advised to slowly advance diet, he is on full liquids continue full liquids for another 24 hours, slowly advance to GI soft diet, ? Avoid high fiber for the next 4 weeks, ? If he has any recurrent abdominal pain, lack of stooling, fevers, feeling unwell come back to the emergency room ? Had extensive discussion with patient's family about perforated diverticulitis with intra-abdominal abscess and medically managing it, patient's family understands the risks including but not limited to bowel obstructions, sepsis, worsening infections, future surgeries, however for now they want to medically manage, see how he tolerates p.o. antibiotics, see how he does with repeat CT scans in 2 weeks ? Patient will need a colonoscopy at some point, at least within a month, ? Patient did have KRYSTEN during hospitalization improved with IV fluids, likely second to dehydration Physical Exam Const: COMMON NORMALS: no acute distress and patient oriented x3 Resp: COMMON NORMALS: normal respiratory effort, No retractions, No use of accessory muscles and clear to auscultation bilaterally AUSCULTATION: clear to auscultation bilaterally Cardio: COMMON NORMALS: regular rate, regular rhythm, S1 normal heart sound present and S2 normal heart sound present RATE: regular rate RHYTHM: regular rhythm HEART SOUNDS: S1 normal heart sound present and S2 normal heart sound present GI: COMMON NORMALS: Normal to inspection, nondistended, normoactive bowel sounds present and non-tender Extremity: COMMON NORMALS: no pedal edema Neuro: COMMON NORMALS: patient oriented x3 Psych: COMMON NORMALS: mental status grossly normal Discharge Data Studies Completed and Pending Completed Studies During Hospitalization Category Date Time Status CT abdomen pelvis w con* [id number] Routine Cat Scan 08/31/23 08:[address] abdomen pelvis wo con [id number] Stat Cat Scan 08/28/23 10:35 Completed Pending at discharge Category Date Time Status Blood Culture Stat Lab 08/28/23 11:55 Results Vancomycin Trough Timed Lab 09/01/23 16:45 Ordered Laboratory Results WBC 8.89 10^3/uL (3.29-11.43) 08/31/23 02:58 RBC 3.43 10^6/uL (3.85-5.65) L 08/31/23 02:58 Hgb 10.10 g/dL (11.27-16.99) L 08/31/23 02:58 Hct 31.1 % (37-53) L 08/31/23 02:58 MCV 90.7 fl (82-101) 08/31/23 02:58 MCH 29.4 pg (27-33) 08/31/23 02:58 MCHC 32.5 g/dL (30-55) 08/31/23 02:58 RDW 14.0 % (12.1-15.1) 08/31/23 02:58 Plt Count 232 10^3/cmm (157-399) 08/31/23 02:58 MPV 9.4 fL (7.4-10.4) 08/31/23 02:58 Neut % (Auto) 66.9 % 08/31/23 02:58 Lymph % (Auto) 18.3 % 08/31/23 02:58 [place] % (Auto) 8.8 % 08/31/23 02:58 Eos % (Auto) 2.1 % 08/31/23 02:58 Baso % (Auto) 0.3 % 08/31/23 02:58 Neut # (Auto) 5.94 10^3/uL (1.8-7.7) 08/31/23 02:58 Lymph # (Auto) 1.6 10^3/uL (0.8-4.8) 08/31/23 02:58 [place] # (Auto) 0.8 10^3/uL (0.2-0.9) 08/31/23 02:58 Eos # (Auto) 0.2 10^3/uL (0.0-0.8) 08/31/23 02:58 Baso # (Auto) 0.0 10^3/uL (0.0-0.1) 08/31/23 02:58 Nucleated RBC % (auto) 0 % 08/31/23 02:58 Nucleated RBCs # 0.0 /100WBC 08/31/23 02:58 Sodium 142 mmol/L (136-145) 08/31/23 02:58 Potassium 3.8 mmol/L (3.5-5.1) 08/31/23 02:58 Chloride 114 mmol/L (98-107) H 08/31/23 02:58 Carbon Dioxide 19 mmol/L (22-29) L 08/31/23 02:58 Anion Gap 12.8 (5-19) 08/31/23 02:58 BUN 25 mg/dL (8-23) H 08/31/23 02:58 Creatinine 1.4 mg/dL (0.7-1.2) H 08/31/23 02:58 GFR Calculation Not Reportable 08/31/23 02:58 Glucose 102 mg/dL (65-115) 08/31/23 02:58 Estimat Average Glucose 111 08/29/23 04:46 Hemoglobin A1c 5.5 % (4.0-6.0) 08/29/23 04:46 Calculated Osmolality 299 mOsm/kg (285-295) H 08/31/23 02:58 Lactic Acid 0.6 mmol/L (0.5-2.2) 08/29/23 04:46 Calcium 7.9 mg/dL (8.5-10.5) L 08/31/23 02:58 Phosphorus 1.9 mg/dL (2.5-4.5) L 08/31/23 02:58 Magnesium 1.6 mg/dL (1.7-2.3) L 08/31/23 02:58 Total Bilirubin 0.6 mg/dL (0.15-1.2) 08/31/23 02:58 AST 17 U/L (0-40) 08/31/23 02:58 ALT 19 U/L (0-41) 08/31/23 02:58 Alkaline Phosphatase 66 U/L (40-130) 08/31/23 02:58 Total Protein 5.2 g/dL (6.6-8.7) L 08/31/23 02:58 Albumin 2.6 g/dL (3.5-5.2) L 08/31/23 02:58 Globulin 2.6 g/dL (1.3-4.6) 08/31/23 02:58 Triglycerides 143 mg/dL (0-150) 08/29/23 04:46 Cholesterol 98 mg/dL (0-200) 08/29/23 04:46 LDL Cholesterol, Calc 55 mg/dL (50-129) 08/29/23 04:46 HDL Cholesterol 14 mg/dL (60-100) L 08/29/23 04:46 LDL/HDL Ratio 3.93 RATIO (0.00-3.22) H 08/29/23 04:46 Cholesterol/HDL Ratio 7.00 mg/dL (1.0-5.00) H 08/29/23 04:46 Lipase 30 U/L (13-60) 08/28/23 09:42 Procalcitonin 0.75 ng/mL (0-0.5) H 08/28/23 09:42 TSH 1.20 uIU/mL (0.27-4.20) 08/29/23 04:46 Urine Color Yellow (Yellow) 08/28/23 11:50 Urine Appearance Sl hazy (CLEAR) A 08/28/23 11:50 Urine pH 5 (5-7) 08/28/23 11:50 Ur Specific [place] 1.015 (1.005-1.030) 08/28/23 11:50 Urine Protein Trace (Negative) 08/28/23 11:50 Urine Glucose (UA) Norm (Normal) 08/28/23 11:50 Urine Ketones Negative (Negative) 08/28/23 11:50 Urine Blood Neg (Negative) 08/28/23 11:50 Urine Nitrate Negative (Negative) 08/28/23 11:50 Urine Bilirubin Neg (Negative) 08/28/23 11:50 Urine Urobilinogen Norm mg/dL (Negative) 08/28/23 11:50 Ur Leukocyte Esterase Negative (Negative) 08/28/23 11:50 Urine RBC 0-4 /hpf (0-2) H 08/28/23 11:50 Urine WBC 0-4 /hpf (0-5) H 08/28/23 11:50 Ur Squamous Epith Cells 0-4 /hpf (0-5) H 08/28/23 11:50 Amorphous Sediment 3+ /hpf 08/28/23 11:50 Urine Bacteria Trace /hpf (NONE) 08/28/23 11:50 Vitals Last Vital Signs Temp 98.0 F 08/31/23 12:00 Pulse 65 08/31/23 12:00 Resp 20 H 08/31/23 12:00 BP 120/67 08/31/23 12:00 Pulse Ox 98 08/31/23 12:00 O2 Del Method Room Air 08/30/23 12:00 O2 Flow Rate 2 08/28/23 16:07 Discharge Plan Discharge Patient Disposition: Home Condition: Stable Prescriptions: New Cipro 500 mg tablet 500 mg PO BID 14 Days Qty: 28 0RF metronidazole 500 mg tablet 500 mg PO Q8H 14 Days Qty: 42 0RF hydrocodone-acetaminophen 5-325 mg tablet 1 tab PO Q8H PRN (Reason: pain) 7 Days Qty: 21 0RF Continued tamsulosin 0.4 mg capsule 0.4 mg PO BID Held lisinopril-hydrochlorothiazide 10-12.5 mg tablet 2 tab PO QAM Hold Instructions: Resume on 09/07/23. Discharge Orders: Discharge Order (Routine); Ordered 08/31/23 Ordered By: Kvng Montilla Other Ambulatory Orders: CT abdomen pelvis wo con [id number] (Routine) Timeframe: 2 Weeks Facility: [facility] - Location: Radiology [facility] Ordered By: Henry Castro Referrals: Henry Castro DO [Physician] - 2 weeks (We have notified your physician's clinic of the need for a follow-up appointment to be scheduled. If you have not heard from them within the next 2 business days, please call them directly. You may also reach out to our membership sales manager at [phone] and she can assist you.) Discharge Diet: Full LIquid Discharge Activity: Resume usual activity Patient Instructions: Ciprofloxacin (By mouth) (Cipro), Hydrocodone/Acetaminophen (By mouth) (Vicodin, [place], Lortab), Metronidazole (By mouth) (Flagyl, Flagyl 375, Flagyl ER), Diverticulitis (DC), Opioid Safety Activity Restrictions/Additional Instructions: - Please follow-up with general surgery in 2 weeks, repeat CT scan out of the house in 2 weeks, ? If any worsening fevers, chills, abdominal pain, lack of stooling, please go to the emergency room, ? Take antibiotics for 2 weeks, ? Hydrate well, drink plenty of electrolyte balanced fluids, ? Take pain medication sparingly for pain, do not drive or operate machinery or drink while taking medication ? Please continue full liquids for another 24 hours, advance to GI soft diet as tolerated, if you have recurrent abdominal pain, go back to full liquid Discharge Attestations Time Spent in Discharge Care*: greater than 30 min Quality Metrics Clinical Quality Measures [ No reported AMI, CVA or VTE this stay] Coding Level of Care Code 64408 Total time (in minutes) for Discharge: 45 Diagnoses Diverticulitis of large intestine with complication K57.32 KRYSTEN (acute kidney injury) N17.9
--- NOTE | 2023-08-31 15:32 | PC.NURSE ---
Discussed discharge new medications, instructions, held medications and gave CT outpatient order to daughter. Patient and daughter verbalized understanding.
== END 2023-08-31 15:52 | disposition home or self-care (01) | DRG 392 ==
LOC: ER 10:42 → MEDSURG 15:23
PROVIDERS: Admitting Provider Family Medicine; Emergency Provider Family Medicine; Visit Provider Family Medicine
DX: K57.20 Diverticulitis of large intestine with perforation and abscess without bleeding (principal); N17.9 Acute kidney failure, unspecified; I10 Essential (primary) hypertension; K80.20 Calculus of gallbladder without cholecystitis without obstruction
CPT/HCPCS: 36415; 74176; 74177; 80053; 80061; 81001; 83036; 83605; 83690; 83735; 84100; 84145; 84443; 85025; 87040; 94664; 96361; 96372; 96374; 96375; 97110; 97161; 99285; C9113; J1650; J2270; J2405; J2543; J3370; J3475; J7030; Q9967

== ENCOUNTER 2023-09-06 03:58 | Emergency (ER) | payer MEDICARE, OTHER, SELFPAY ==
[2023-09-06 04:10] VITALS: BP 181/119; PULSE 77; RESP 18; TEMP 36.7; O2SAT 98; BMI 27.2
[2023-09-06 05:11] LABS: Bilirubin Urine Neg (Negative); Blood Urine 3+ (Negative); Glucose Urine UA Norm (Normal); Ketones Urine 1+ (Negative); Nitrate Urine Negative (Negative); Protein Urine 3+ (Negative); Specific Gravity, Urine 1.015 (1.005-1.030); Urine Appearance Hazy (CLEAR); Urine Color Red (Yellow); Urobilinogen Urine Neg (Negative); pH Urine 5 (5-7)
[2023-09-06 05:12] LABS: Add Urine Culture? Yes; Add Urine Microscopic? YES; Leukocyte Esterase Urine 1+ (Negative); RBC Urine TOO NUMEROUS TO CNT /hpf (0-2); Squamous Epithelial Cell Urine 0-4 /hpf (0-5); WBC Urine 0-4 /hpf (0-5)
[2023-09-06 05:13] VITALS: BP 139/76; PULSE 67; RESP 16; O2SAT 94
--- NOTE | 2023-09-06 05:57 | W.ED.MALEGU ---
HPI - Male Genitourinary General: Chief complaint: Urogenital-Male Stated complaint: unable to void Time Seen by Provider: 09/06/23 05:16 Source: patient and family History of Present Illness: 82-year-old gentleman who was discharged from the hospital last week. He has a history of urinary retention. He presents with pelvic pain, a bloated sensation, and little to no urination essentially all day. No fever. No diarrhea. No vomiting. Associated symptoms: Reports nausea; Deny vomiting Review of Systems Const: Denies: fever(s), chills or body aches Eyes: Denies: change in vision Card: Denies: chest pain or palpitations Resp: Denies: dyspnea, productive cough, non-productive cough or wheezing GI: Reports: abdominal pain, nausea and bloating; Denies: vomiting, diarrhea or hematochezia : Reports: difficulty urinating, urinary frequency, urinary urgency and urinary dribbling Skin/Breast: Denies: rash Neuro: Denies: headache(s), weakness in extremities, dizziness or confusion [facility] ED PFSH: Medical History (Updated 09/06/23 @ 05:55 by David Bright DO) History of essential hypertension Surgical History History of knee replacement Family History Mother Dementia Social History Smoking and tobacco/nicotine status: never used tobacco/nicotine Alcohol intake: never Substance/Drug Use: never Physical Exam Const: COMMON NORMALS: no acute distress GENERAL APPEARANCE: cooperative; not ill appearing and not frail appearing HENMT: COMMON NORMALS: normocephalic, atraumatic and Normal external nose present HEAD & SCALP: normocephalic and atraumatic FACE & SINUS: normal facial exam and face symmetric NOSE: Normal external nose present Eye: COMMON NORMALS: Equal, round and reactive pupils present and EOMs intact bilaterally PUPIL: Yes Equal, round and reactive pupils present Neck/C-Spine: GENERAL: Yes trachea midline Chest: CHEST: Yes Symmetrical chest wall rise Resp: COMMON NORMALS: normal respiratory effort, No retractions, No use of accessory muscles and clear to auscultation bilaterally AUSCULTATION: clear to auscultation bilaterally Cardio: COMMON NORMALS: regular rate and regular rhythm RATE: regular rate RHYTHM: regular rhythm GI: COMMON NORMALS: Normal to inspection, nondistended, normoactive bowel sounds present PALPATION: Yes Tenderness to palpation present (GI) (mild suprapubic (following carmen insertion). ) Extremity: COMMON NORMALS: no pedal edema Neuro: OTF COMA SCALE: document GCS findings [place] coma scale eye opening: Spontaneous Otf coma scale verbal response: Orientated Otf coma scale motor response: Obey commands Otf coma scale total score: 15 SENSORY EXAM: Yes extremities (intact) Psych: COMMON NORMALS: speech normal SPEECH: Yes normal speech Skin: COMMON NORMALS: no rashes or lesions noted GENERAL SKIN EXAM: no rashes or lesions noted Course Vital Signs: Vital signs: Vital Signs Temperature 98.0 F 09/06/23 06:16 Pulse Rate 67 09/06/23 06:16 Respiratory Rate 16 09/06/23 06:16 Blood Pressure 139/76 09/06/23 06:16 Pulse Oximetry 94 09/06/23 06:16 Oxygen Delivery Me thod Room Air 09/06/23 04:10 MDM - Male Medical Decision Making Carmen catheter placed with resolution of his symptoms. He has about 1.5 L out now. He is feeling well. He has an appointment with his PCP tomorrow. He will be allowed discharge. carmen to be pulled in 48-72h. Return for any problems. No evidence of significant infection on UA. Lab Data Laboratory Results Urine Color Red (Yellow) A 09/06/23 04:43 Urine Appearance Hazy (CLEAR) A 09/06/23 04:43 Urine pH 5 (5-7) 09/06/23 04:43 Ur Specific Filion 1.015 (1.005-1.030) 09/06/23 04:43 Urine Protein 3+ (Negative) H 09/06/23 04:43 Urine Glucose (UA) Norm (Normal) 09/06/23 04:43 Urine Ketones 1+ (Negative) H 09/06/23 04:43 Urine Blood 3+ (Negative) H 09/06/23 04:43 Urine Nitrate Negative (Negative) 09/06/23 04:43 Urine Bilirubin Neg (Negative) 09/06/23 04:43 Urine Urobilinogen Neg mg/dL (Negative) 09/06/23 04:43 Ur Leukocyte Esterase 1+ (Negative) H 09/06/23 04:43 Urine RBC Too numerous to cnt /hpf (0-2) H 09/06/23 04:43 Urine WBC 0-4 /hpf (0-5) H 09/06/23 04:43 Ur Squamous Epith Cells 0-4 /hpf (0-5) H 09/06/23 04:43 Amorphous Sediment Not Reportable 09/06/23 04:43 Urine Bacteria None /hpf (NONE) 09/06/23 04:43 No radiology studies performed this visit Discharge Plan Discharge Patient Disposition: Home Clinical Impression: Acute urinary retention Condition: Stable Prescriptions: No Action tamsulosin 0.4 mg capsule 0.4 mg PO BID lisinopril-hydrochlorothiazide 10-12.5 mg tablet 2 tab PO QAM Hold Instructions: Resume on 09/07/23. Cipro 500 mg tablet 500 mg PO BID 14 Days Qty: 28 0RF metronidazole 500 mg tablet 500 mg PO Q8H 14 Days Qty: 42 0RF hydrocodone-acetaminophen 5-325 mg tablet 1 tab PO Q8H PRN (Reason: pain) 7 Days Qty: 21 0RF Discharge Orders: Discharge ED (Routine); Ordered 09/06/23 Ordered By: David Bright Referrals: Ishaan Goyal [Primary Care Provider] - 1-3 days Patient Instructions: Urinary Retention in Men (ED), Carmen Catheter Placement and Care (ED), Opioid Safety, Pain Management Activity Restrictions/Additional Instructions: See your doctor tomorrow as scheduled. Carmen catheter can come out in 48 to 72 hours. Return for any problems. Coding Level of Care Code ED Research Dietitian for Dante Reaves
[2023-09-06 06:16] VITALS: BP 139/76; PULSE 67; RESP 16; TEMP 36.7; O2SAT 94
== END 2023-09-06 06:18 | disposition home or self-care (01) ==
PROVIDERS: Emergency Provider Emergency Medicine; PCP Family Medicine
DX: R33.9 Retention of urine, unspecified (principal); I10 Essential (primary) hypertension
CPT/HCPCS: 51702; 81001; 87086; 99283

== ENCOUNTER 2023-09-30 16:42 | Outpatient (CLI) | payer MEDICARE, OTHER, SELFPAY ==
--- NOTE | 2023-09-30 16:35 | CTR_ITS ---
PROCEDURE INFORMATION: Exam: CT Abdomen And Pelvis With Contrast Exam date and time: 09/30/2023 5:39 PM Age: 82 years old Clinical indication: Condition or disease; Intestinal condition; Diverticulitis.No history of trauma or recent surgery is provided. TECHNIQUE: Imaging protocol: Computed tomography of the abdomen and pelvis with contrast. 220image(s) are provided. Radiation optimization: All CT scans at this facility use at least one of these dose optimization techniques: automated exposure control; mA and/or kV adjustment per patient size (includes targeted exams where dose is matched to clinical indication); or iterative reconstruction. Contrast material: OMNI 350; Contrast volume: 95 ml; Contrast route: INTRAVENOUS (IV); Other technique: Axial images are available with sagittal and coronal reconstruction views. Automated dose exposure control is utilized. The DLP is 443.73. REPORTING DATA: Count of CT and Cardiac NM exams in prior 12 months: This patient has received 2 known CTs and 0 known cardiac nuclear medicine studies in the 12 months prior to the current study. COMPARISON: 1. CT abdomen pelvis w con* [id number] 08/31/2023 9:[address] abdomen pelvis wo con [id number] 08/28/2023 10:53 AM RADIATION DOSE METRICS: Total DLP (mGy-cm): 443.73 FINDINGS: Lungs: No lobar consolidation is appreciated.There is some subsegmental atelectasis versus post inflammatory scarring demonstrated. Liver: There is some subcentimeter hepatic cystic related change similar overall. Gallbladder and bile ducts: There is some gallbladder fold averaging with some slight calcific sludge. Pancreas: No pancreatic ductal dilatation or calculus is currently appreciated. Spleen: Unremarkable. Adrenal glands: Unremarkable. Kidneys and ureters: There is homogeneous renal parenchymal enhancement with no radiopaque obstructive calculus or hydronephrosis appreciated. There are some cystic appearing changes similar overall corresponding to the previous descriptions. Consider renal ultrasound. Stomach and bowel: There is a small sliding-type hiatal hernia demonstrated with slight gastroesophageal fold thickening. There is some colonic diverticulosis demonstrated. This is most pronounced of the descending and rectosigmoid colon. There is some subtle stranding of the descending colon and sigmoid junction which could represent some early inflammation, colitis. The previously described central abscess is no longer appreciated with some corresponding minimal stranding. No contrast extravasation is appreciated. Appendix: No evidence of appendicitis. Intraperitoneal space: No free air or free fluid collections are currently appreciated. Vasculature: New interval abdominal aortic saccular aneurysmal dilatation is appreciated with chronic atherosclerotic and branch vessel related change. Lymph nodes: There are subcentimeter predominant para-aortic and mesenteric lymph nodes overall present. Urinary bladder: There is some indentation from the adjacent enlarged prostate gland. Reproductive: There is significantly enlarged and heterogeneous appearance of the prostate. There is history of a large left hydrocele similar in location with overall incomplete inclusion. Bones/joints: Osseous alignment is maintained.No interval displaced fracture or dislocation is appreciated.There is slightly decreased bone mineralization overall. There are chronic appearing degenerative changes of the spine similar overall. Soft tissues: There is some right gluteal sebaceous cystic related change similar overall. No radiopaque foreign body or subcutaneous emphysema is appreciated. Other findings: There is some motion artifact present. No other significant interval changes are appreciated. CT/CT abdomen pelvis w con* [id number] IMPRESSION: 1. There is some diverticulosis demonstrated with faint stranding of the descending colon and could represent early inflammation, diverticulitis. No free air or free fluid is currently appreciated. 2. The previously described central free air and abscess appears resolved with some otherwise chronic appearing inflammatory stranding sequela at this location.
[2023-09-30] MEDS: iohexol 350 mg/mL 500 mL Btl (per mL) PO (17:32)
[2023-09-30] MEDS: iohexol 350 mg/mL 500 mL Btl (per mL) IV (17:42)
== END 2023-09-30 16:43 | disposition home or self-care (01) ==
LOC: RAD 16:42
PROVIDERS: PCP Family Medicine; Visit Provider Nurse Practitioner Family
DX: K57.30 Diverticulosis of large intestine without perforation or abscess without bleeding (principal); K57.92 Diverticulitis of intestine, part unspecified, without perforation or abscess without bleeding
CPT/HCPCS: 74177; Q9967

== ENCOUNTER → 2023-10-07 11:41 | Outpatient (BNVA) | payer MEDICARE, OTHER, SELFPAY | PROVIDERS: PCP Family Medicine; Visit Provider Surgery | DX: K57.80 Diverticulitis of intestine, part unspecified, with perforation and abscess without bleeding (principal) | CPT/HCPCS: 99212 ==

== ENCOUNTER → 2023-10-20 09:54 | Outpatient (BNVA) | payer MEDICARE, OTHER, SELFPAY | PROVIDERS: PCP Family Medicine; Visit Provider Surgery | DX: Z09 Encounter for follow-up examination after completed treatment for conditions other than malignant neoplasm (principal); K57.80 Diverticulitis of intestine, part unspecified, with perforation and abscess without bleeding | CPT/HCPCS: 99204; 99214 ==

== ENCOUNTER 2023-11-13 06:27 | Day surgery (SDC) | payer MEDICARE, OTHER, SELFPAY ==
[2023-11-13 06:47] VITALS: BP 113/60; PULSE 85; RESP 18; TEMP 36.4; O2SAT 99; BMI 27.3
[2023-11-13] MEDS: sodium chloride 0.9% 1,000 ML 30 ML IV (06:53)
--- NOTE | 2023-11-13 06:53 | ANES.PREANE2 ---
Pre-Anesthetic Assessment Height/Weight: Height 1.73 m Weight 81.647 kg Temp Pulse Resp BP Pulse Ox O2 Del Method 97.6 F 85 18 113/60 99 Room Air 11/13/23 06:47 11/13/23 06:47 11/13/23 06:47 11/13/23 06:47 11/13/23 06:47 11/13/23 06:47 Operation Date: 11/13/23 07:30 Proposed Procedures p 80257 colonoscopy g0121 screen colon a risk K57.80(Not Applicable) - Henry Castro DO Familial anesthetic complications: none Was Beta Colby taken within 24 hours: N/A Was Clonidine taken within 24 hours: N/A Last intake: Intake Last Liquid Date 11/12/23 Last Liquid Time 21:00 Last Solid Date 11/11/23 Last Solid Time 18:00 Social No alcohol and No tobacco Exam alert, oriented x 3 and clear to auscultation bilaterally Airway Submandibular: within normal limits Cervical ROM: within normal limits Mallampati: Class I Dentition: full History/ROS No significant history except as noted Pulmonary None reported CV/HEM None reported None reported Hepatic None reported GI Gastroesophageal Reflux Disease occassional with spicy foods Metabolic None reported Musc/skel None reported Neuropsych None reported Anesthetic Plan ASA status: 2 Anesthesia: Anesthesia Evaluation and MAC Risk of > 500 ml blood loss (7ml/kg in children): No Medications/Allergies Home Medications Medication Instructions Recorded Confirmed Last Taken Type lisinopril 10 2 tab PO QAM 08/28/23 11/13/23 11/12/23 History mg-hydrochlorothiazide 12.5 mg tablet tamsulosin 0.4 mg capsule 0.4 mg PO BID 08/28/23 11/13/23 11/12/23 History Allergies Allergy/AdvReac Type Severity Reaction Status Date / Time No Known Allergies Allergy Verified 11/12/23 06:04 Lisinopril and flomax PFSH Anesthesia Medical History History of essential hypertension Surgical History History of knee replacement Family History Mother Dementia Social History Smoking and tobacco/nicotine status: never used tobacco/nicotine Alcohol intake: never Substance/Drug Use: never Data Anesthesia Cardiac Studies: No Data to Display
--- NOTE | 2023-11-13 07:42 | W.PM.OPSUD ---
Surgery/Procedure H&P Update DATE OF PROCEDURE: November 13, 2023 DATE H&P PERFORMED: 10/20/23 H&P UPDATE INFORMATION: I have reviewed H&P completed within last 30 days, I have examined patient prior to procedure and No changes to prior documentation PLANNED PROCEDURE: Operation Date: 11/13/23 07:30 Proposed Procedures p [id number] colonoscopy g0121 screen colon a risk K57.80(Not Applicable) - Henry Castro, DO
[2023-11-13 08:21] VITALS: BP 93/57; PULSE 57; RESP 16; TEMP 36.3; O2SAT 91
[2023-11-13 08:36] VITALS: BP 112/60; PULSE 57; RESP 18; O2SAT 98
--- NOTE | 2023-11-13 09:41 | PM.MISC ---
Miscellaneous Note Note: SAVANNAH was not WNL. only one hard nodule palpated where prostate should be. Will further discuss patient's surgical history and address in office
--- NOTE | 2023-11-13 13:06 | ANE.PACU2 ---
Inpatient post-anesthesia follow up: Airway intact: Yes Vital signs: Temperature 97.4 F Pulse Rate 57 Respiratory Rate 18 Blood Pressure 112/60 Pulse Oximetry 98 Oxygen Delivery Me thod Room Air Oxygen Flow Rate Fraction of Inspir ed Oxygen Hydration adequate: Yes Nausea and vomiting: No Pain level: 2 Mental status: Baseline
== END 2023-11-13 09:27 | disposition home or self-care (01) ==
PROVIDERS: PCP Family Medicine; Visit Provider Surgery
PROC: 0DJD8ZZ Inspection of Lower Intestinal Tract, Via Natural or Artificial Opening Endoscopic (ICD-10-PCS; CPT 45378; principal; 2023-11-13 07:30)
DX: K57.80 Diverticulitis of intestine, part unspecified, with perforation and abscess without bleeding (principal); K57.30 Diverticulosis of large intestine without perforation or abscess without bleeding; D12.2 Benign neoplasm of ascending colon; K21.9 Gastro-esophageal reflux disease without esophagitis; I10 Essential (primary) hypertension
CPT/HCPCS: 45385; 88305; J2371; J2704; J3490; J7030

== ENCOUNTER → 2023-11-26 09:50 | Outpatient (BNVA) | payer MEDICARE, OTHER, SELFPAY | PROVIDERS: PCP Family Medicine; Visit Provider Surgery | DX: Z09 Encounter for follow-up examination after completed treatment for conditions other than malignant neoplasm (principal); K57.80 Diverticulitis of intestine, part unspecified, with perforation and abscess without bleeding; D12.6 Benign neoplasm of colon, unspecified; N42.9 Disorder of prostate, unspecified; Q55.9 Congenital malformation of male genital organ, unspecified | CPT/HCPCS: 99214 ==

== ENCOUNTER 2023-12-09 09:46 | Day surgery (SDC) | payer MEDICARE, OTHER, SELFPAY ==
[2023-12-09 10:05] VITALS: BP 135/57; PULSE 68; RESP 18; TEMP 36.5; O2SAT 98; BMI 24.3
--- NOTE | 2023-12-09 10:12 | ANES.PREANE2 ---
Pre-Anesthetic Assessment Height/Weight: Height 1.78 m Preop Diagnosis: diverticulitis Operation Date: 12/09/23 11:00 Proposed Procedures p 10793 colon G0105 screen colon H risk K57.80(Not Applicable) - Henry Castro DO Familial anesthetic complications: none Was Beta Colby taken within 24 hours: N/A Was Clonidine taken within 24 hours: N/A Social No alcohol and No tobacco Exam alert, oriented x 3, clear to auscultation bilaterally and regular rate & rhythm Airway Submandibular: within normal limits Cervical ROM: within normal limits Mallampati: Class II Dentition: false Pulmonary None reported CV/HEM Hypertension None reported Hepatic None reported Metabolic None reported Musc/skel None reported Neuropsych None reported Anesthetic Plan ASA status: 2 Anesthesia: MAC Risk of > 500 ml blood loss (7ml/kg in children): No Medications/Allergies Home Medications Medication Instructions Recorded Confirmed Last Taken Type lisinopril 10 2 tab PO QAM 08/28/23 12/07/23 12/08/23 History mg-hydrochlorothiazide 12.5 mg tablet tamsulosin 0.4 mg capsule 0.4 mg PO BID 08/28/23 12/07/23 12/08/23 History Allergies Allergy/AdvReac Type Severity Reaction Status Date / Time No Known Allergies Allergy Verified 11/26/23 10:39 [facility] Anesthesia Medical History History of essential hypertension Surgical History History of knee replacement Family History Mother Dementia Social History Smoking and tobacco/nicotine status: never used tobacco/nicotine Alcohol intake: never Substance/Drug Use: never Data Anesthesia Cardiac Studies: No Data to Display
[2023-12-09] MEDS: sodium chloride 0.9% 1,000 ML 30 ML IV (10:18)
--- NOTE | 2023-12-09 11:00 | W.PM.OPSUD ---
Surgery/Procedure H&P Update DATE OF PROCEDURE: December 09, 2023 DATE H&P PERFORMED: 11/26/23 H&P UPDATE INFORMATION: I have reviewed H&P completed within last 30 days, I have examined patient prior to procedure and No changes to prior documentation PREOP DIAGNOSIS: diverticulitis PLANNED PROCEDURE: Operation Date: 12/09/23 11:00 Proposed Procedures p 07462 colon G0105 screen colon H risk K57.80(Not Applicable) - Henry Castro DO
[2023-12-09 11:34] VITALS: BP 81/39; PULSE 66; RESP 18; TEMP 36.6; O2SAT 97
[2023-12-09 11:45] VITALS: BP 98/61
[2023-12-09 11:56] VITALS: BP 121/63; PULSE 51; RESP 18; O2SAT 98
[2023-12-09 12:00] VITALS: BP 104/61; PULSE 53; RESP 18; O2SAT 98
[2023-12-09 12:05] VITALS: BP 116/61; PULSE 50; RESP 18; O2SAT 100
--- NOTE | 2023-12-09 12:25 | ANE.PACU2 ---
Inpatient post-anesthesia follow up: Airway intact: Yes Vital signs: Temperature 97.8 F Pulse Rate 50 Respiratory Rate 18 Blood Pressure 116/61 Pulse Oximetry 100 Oxygen Delivery Me thod Room Air Oxygen Flow Rate Fraction of Inspir ed Oxygen Hydration adequate: Yes Nausea and vomiting: No Pain level: 1 Mental status: Baseline
== END 2023-12-09 12:29 | disposition home or self-care (01) ==
PROVIDERS: PCP Family Medicine; Visit Provider Surgery
PROC: 0DJD8ZZ Inspection of Lower Intestinal Tract, Via Natural or Artificial Opening Endoscopic (ICD-10-PCS; CPT 45378; principal; 2023-12-09 11:00)
DX: K57.30 Diverticulosis of large intestine without perforation or abscess without bleeding (principal); K56.699 Other intestinal obstruction unspecified as to partial versus complete obstruction; D12.2 Benign neoplasm of ascending colon; K62.1 Rectal polyp; I10 Essential (primary) hypertension
CPT/HCPCS: 45381; 45385; 88305; J2704; J7030

== ENCOUNTER 2023-12-11 07:05 | Emergency (ER) | payer MEDICARE, OTHER, SELFPAY ==
[2023-12-11 07:10] VITALS: BP 177/83; PULSE 56; RESP 18; TEMP 36.8; O2SAT 100; BMI 23.6
--- NOTE | 2023-12-11 07:13 | CT_ITS ---
WS: [id number] CT ABDOMEN PELVIS TECHNIQUE: Contrast-enhanced CT of the abdomen and pelvis with coronal and sagittal reformatted image s. CLINICAL INFORMATION: abd pain COMPARISON: None. DLP: 799.[address] scans at [facility] use at least one of these dose optimization techniques: automated e xposure control; mA and/or kV adjustment per patient size (includes targeted exams where dose is matc hed to clinical indication); or iterative reconstruction. FINDINGS: Markedly enlarged prostate measuring 7.5 x 7.5 cm with diffuse heterogeneous enhancement and slight n odularity. Findings suspicious for neoplasia. Recommend correlation PSA. Moore catheter in place. Air -fluid level in the bladder. Large LEFT scrotal hydrocele. Previously treated diverticulitis has improved over multiple prior examinations. Previously described associated abscess has resolved. Sigmoid diverticulosis with minimal residual induration today. A few tiny lesions in the liver likely small cysts. Cholelithiasis. Lung bases are well aerated. Norm al GE junction. Fatty atrophy of the pancreas. Adrenal glands are normal. No hydronephrosis in either kidney. Small bilateral renal cysts. Normal caliber abdominal aorta. Aortic calcification. Moderate spondylitic changes lumbar spine. IMPRESSION: 1. Moore catheter in place. Air-fluid level in the bladder. 2. Markedly enlarged prostate similar in appearance to the prior examination measuring 7.4 x 7.4 cm presumably results in bladder outlet obstruction. Recommend correlation PSA. 3. No hydronephrosis in either kidney. 4. Large LEFT scrotal hydrocele partially visualized. 5. Sigmoid diverticulosis with mild residual sigmoid thickening. No evidence of acute diverticulitis today. Previously described treated diverticulitis with abscess has improved since 08/31/2023. No ab scess today. Notified Gregor Espinoza MD at 12/11/2023 8:47 AM.
--- NOTE | 2023-12-11 07:19 | ED_ITS ---
HPI - Male Genitourinary 2 General: Chief complaint: Urogenital-Male Stated complaint: abd pain Time Seen by Provider: 12/11/23 07:08 Source: patient Mode of arrival: ambulatory Limitations: no limitations History of Present Illness: 83-year-old male he has a history divert iculitis states he had a colonoscopy last week and had polyps removed. He states that he has been having worsening lower abdominal pain. He had a history of urinary retention as well and states that he had a difficult time urinating throughout the night he denies any diarrhea denies any fever. Associated symptoms: Deny nausea or vomiting Review of Systems 2 Const: Denies: fever(s), chills, body aches or change in appetite ENMT: Denies: throat pain or dental pain Card: Denies: chest pain Resp: Denies: dyspnea GI: Reports: abdominal pain; Denies: nausea, vomiting or diarrhea : Reports: difficulty urinating Musc: Denies: neck pain or back pain Skin/Breast: Denies: rash Neuro: Denies: headache(s) PFSH ED 2 PFSH: Medical History History of essential hypertension Surgical History History of knee replacement Family History Mother Dementia Social History Smoking and tobacco/nicotine status: never used tobacco/nicotine Alcohol intake: never Substance/Drug Use: never Physical Exam 2 Const: COMMON NORMALS: patient oriented x3 HENMT: COMMON NORMALS: normocephalic and atraumatic HEAD & SCALP: n ormocephalic and atraumatic Neck/C-Spine: COMMON NORMALS: full ROM and supple Chest: COMMONS NORMALS: normal inspection of the chest and normal palpation of entire chest wall Resp: COMMON NORMALS: normal respiratory effort, No retractions, No use of accessory muscles and clear to auscultation bilaterally AUSCULTATION: clear to auscultation bilaterally Cardio: COMMON NORMALS: regular rate, regular rhythm and No murmurs present (Cardio) RATE: regular rate RHYTHM: regular rhythm GI: COMMON NORMALS: Normal to inspection, nondistended, normoactive bowel sounds present, Soft to palpation and no masses PALPATION: Yes Soft to palpation OTHER: lower abdomen tenderness Extremity: COMMON NORMALS: normal to inspection and full ROM Neuro: COMMON NORMALS: patient oriented x3, moves all extremities and no focal motor deficits Psych: COMMON NORMALS: mental status grossly normal, Normal thought process present and cooperative THOUGHT PROCESS: Normal thought process present Skin: COMMON NORMALS: no rashes or lesions noted and no wounds GENERAL SKIN EXAM: no rashes or lesions noted Course 2 Vital Signs: Vital signs: Vital Signs Temperature 98.2 F 12/11/23 07:10 Pulse Rate 47 L 12/11/23 07:52 Respiratory Rate 16 12/11/23 07:52 Blood Pressure 134/68 12/11/23 07:52 Pulse Oximetry 100 12/11/23 07:52 Oxygen Delivery Me thod Room Air 12/11/23 07:52 MDM - Male Medical Decision Making Patient presents with lower abdominal pain likely from urinary retention he had 1200 out of urine after Moore placement is likely in retention from his enlarged prostate CT showed no other acute findings. Will leave Moore in place he has a urology appointment next month informed to call his urologist see if he can get in sooner return if worsening they understand agree to plan Medical Records I reviewed the patient's medical records. Lab Data I reviewed the patient's lab results. 12/11/23 07:19 12/11/23 07:19 Laboratory Results WBC 6.06 10^3/uL (3.29-11.43) 12/11/23 07:19 RBC 4.27 10^6/uL (3.85-5.65) 12/11/23 07:19 Hgb 12.30 g/dL (11.27-16.99) 12/11/23 07:19 Hct 36.5 % (37-53) L 12/11/23 07:19 MCV 85.5 fl (82-101) 12/11/23 07:19 MCH 28.8 pg (27-33) 12/11/23 07:19 MCHC 33.7 g/dL (30-55) 12/11/23 07:19 RDW 14.5 % (12.1-15.1) 12/11/23 07:19 Plt Count 167 10^3/cmm (157-399) 12/11/23 07:19 MPV 9.0 fL (7.4-10.4) 12/11/23 07:19 Neut % (Auto) 44.3 % 12/11/23 07:19 Lymph % (Auto) 45.5 % 12/11/23 07:19 Wilbarger % (Auto) 6.9 % 12/11/23 07:19 Eos % (Auto) 1.8 % 12/11/23 07:19 Baso % (Auto) 1.2 % 12/11/23 07:19 Neut # (Auto) 2.68 10^3/uL (1.8-7.7) 12/11/23 07:19 Lymph # (Auto) 2.8 10^3/uL (0.8-4.8) 12/11/23 07:19 [place]ger # (Auto) 0.4 10^3/uL (0.2-0.9) 12/11/23 07:19 Eos # (Auto) 0.1 10^3/uL (0.0-0.8) 12/11/23 07:19 Baso # (Auto) 0.1 10^3/uL (0.0-0.1) 12/11/23 07:19 Nucleated RBC % (auto) 0 % 12/11/23 07:19 Nucleated RBCs # 0.0 /100WBC 12/11/23 07:19 Sodium 136 mmol/L (136-145) 12/11/23 07:19 Potassium 4.5 mmol/L (3.5-5.1) 12/11/23 07:19 Chloride 100 mmol/L (98-107) 12/11/23 07:19 Carbon Dioxide 22 mmol/L (22-29) 12/11/23 07:19 Anion Gap 18.5 (5-19) 12/11/23 07:19 BUN 29 mg/dL (8-23) H 12/11/23 07:19 Creatinine 1.7 mg/dL (0.7-1.2) H 12/11/23 07:19 GFR Calculation Not Reportable 12/11/23 07:19 Glucose 97 mg/dL (65-115) 12/11/23 07:19 Calculated Osmolality 288 mOsm/kg (285-295) 12/11/23 07:19 Calcium 9.6 mg/dL (8.5-10.5) 12/11/23 07:19 Total Bilirubin 0.6 mg/dL (0.15-1.2) 12/11/23 07:19 AST 16 U/L (0-40) 12/11/23 07:19 ALT 12 U/L (0-41) 12/11/23 07:19 Alkaline Phosphatase 94 U/L (40-130) 12/11/23 07:19 Total Protein 7.5 g/dL (6.6-8.7) 12/11/23 07:19 Albumin 4.3 g/dL (3.5-5.2) 12/11/23 07:19 Globulin 3.2 g/dL (1.3-4.6) 12/11/23 07:19 Lipase 26 U/L (13-60) 12/11/23 07:19 Urine Color Straw (Yellow) 12/11/23 07:43 Urine Appearance Clear (CLEAR) 12/11/23 07:43 Urine pH 5 (5-7) 12/11/23 07:43 Ur Specific Merna 1.005 (1.005-1.030) 12/11/23 07:43 Urine Protein Neg (Negative) 12/11/23 07:43 Urine Glucose (UA) Norm (Normal) 12/11/23 07:43 Urine Ketones Negative (Negative) 12/11/23 07:43 Urine Blood 2+ (Negative) H 12/11/23 07:43 Urine Nitrate Negative (Negative) 12/11/23 07:43 Urine Bilirubin Neg (Negative) 12/11/23 07:43 Urine Urobilinogen Neg mg/dL (Negative) 12/11/23 07:43 Ur Leukocyte Esterase Negative (Negative) 12/11/23 07:43 Urine RBC Rare /hpf (0-2) 12/11/23 07:43 Urine WBC Rare /hpf (0-5) 12/11/23 07:43 Ur Squamous Epith Cells Rare /hpf (0-5) 12/11/23 07:43 Amorphous Sediment Not Reportable 12/11/23 07:43 Urine Bacteria Trace /hpf (NONE) 12/11/23 07:43 All radiology interpretation(s) finalized by discharge Discharge Plan Discharge Patient Disposition: Home Clinical Impression: Acute urinary retention, Enlarged prostate Condition: Stable Prescriptions: No Action tamsulosin 0.4 mg capsule 0.4 mg PO BID lisinopril-hydrochlorothiazide 10-12.5 mg tablet 1 tab PO BID Hold Instructions: Resume on 09/07/23. Metamucil Fiber Singles 3.4 gram Powder In Packet 1 packet PO QAM Rx Instructions: with coffee Discharge Orders: Discharge ED (Routine); Ordered 12/11/23 Ordered By: Gregor Espinoza Referrals: Ishaan Goyal [Primary Care Provider] - 4-7 days Discharge Diet: Advance as tolerated Discharge Activity: Resume usual activity Patient Instructions: Urinary Retention in Men (ED), Moore Catheter Placement and Care (ED) Coding Level of Care Code ED Investigator [employer] for Dante Reaves
[2023-12-11 07:25] LABS: Basophils # 0.1 10^3/uL (0.0-0.1); Basophils % 1.2 %; Eosinophils # 0.1 10^3/uL (0.0-0.8); Eosinophils % 1.8 %; Hematocrit 36.5 % (37-53); Lymphocytes # 2.8 10^3/uL (0.8-4.8); Lymphocytes % 45.5 %; Mean Corpuscular HGB Conc 33.7 g/dL (30-55); Mean Corpuscular Hemoglobin 28.8 pg (27-33); Mean Corpuscular Volume 85.5 fl (82-101); Monocytes # 0.4 10^3/uL (0.2-0.9); Monocytes % 6.9 %; Neutrophils # 2.68 10^3/uL (1.8-7.7); Neutrophils % 44.3 %; Nucleated Red Blood Cells % 0 %; Platelet Count 167 10^3/cmm (157-399); Red Blood Count 4.27 10^6/uL (3.85-5.65); Red Cell Distribution Width 14.5 % (12.1-15.1); White Blood Count 6.06 10^3/uL (3.29-11.43)
[2023-12-11 07:41] LABS: Alanine Aminotransferase 12 U/L (0-41); Albumin Level 4.3 g/dL (3.5-5.2); Alkaline Phosphatase 94 U/L (40-130); Anion Gap 18.5 (5-19); Aspartate Amino Transferase 16 U/L (0-40); Blood Urea Nitrogen 29 mg/dL (8-23); Calcium 9.6 mg/dL (8.5-10.5); Carbon Dioxide 22 mmol/L (22-29); Chloride 100 mmol/L (98-107); Globulin 3.2 g/dL (1.3-4.6); Glucose 97 mg/dL (65-115); Lipase 26 U/L (13-60); Osmolality Calculated 288 mOsm/kg (285-295); Potassium 4.5 mmol/L (3.5-5.1); Sodium 136 mmol/L (136-145); Total Bilirubin 0.6 mg/dL (0.15-1.2); Total Protein 7.5 g/dL (6.6-8.7)
[2023-12-11] MEDS: sodium chloride 0.9% 1,000 ML 999 ML IV (07:49)
[2023-12-11 07:52] VITALS: BP 134/68; PULSE 47; RESP 16; O2SAT 100
--- NOTE | 2023-12-11 07:54 | PC.NURSE ---
NOGUERA PLACED, 1200 OUT, PATIENT STATES HE FEELS MUCH BETTER AND RELIEF PROVIDED.
[2023-12-11 08:02] LABS: Add Urine Culture? No; Add Urine Microscopic? YES; Bacteria Urine TRACE /hpf; Bilirubin Urine Neg (Negative); Blood Urine 2+ (Negative); Glucose Urine UA Norm (Normal); Ketones Urine Negative (Negative); Leukocyte Esterase Urine Negative (Negative); Nitrate Urine Negative (Negative); Protein Urine Neg (Negative); RBC Urine RARE /hpf (0-2); Specific Gravity, Urine 1.005 (1.005-1.030); Squamous Epithelial Cell Urine RARE /hpf (0-5); Urine Appearance Clear (CLEAR); Urine Color Straw (Yellow); Urobilinogen Urine Neg (Negative); WBC Urine RARE /hpf (0-5); pH Urine 5 (5-7)
[2023-12-11] MEDS: iohexol 350 mg/mL 500 mL Btl (per mL) IV (08:14)
--- NOTE | 2023-12-11 08:30 | PC.PHAR ---
pt and pts daughters verified pts medications-states the pt is still taking lisinopril/hctz 10-12.5mg one tab bid ext shows last filled 12/26/22 90d/s pts daughter states the pt has plenty of the lisinopril/hctz at home
[2023-12-11 08:54] VITALS: BP 147/71; PULSE 47; O2SAT 95
--- NOTE | 2023-12-15 09:34 | DCPLANNER ---
Patient has appointment with Moraima Lopez December 21.
== END 2023-12-11 08:56 | disposition home or self-care (01) ==
PROVIDERS: Emergency Provider Emergency Medicine; PCP Family Medicine
DX: R33.8 Other retention of urine (principal); N40.1 Benign prostatic hyperplasia with lower urinary tract symptoms; I10 Essential (primary) hypertension
CPT/HCPCS: 51702; 74177; 80053; 81001; 83690; 85025; 96360; 99285; J7030; Q9967

== ENCOUNTER → 2023-12-25 10:13 | Outpatient (BNVA) | payer MEDICARE, OTHER, SELFPAY | PROVIDERS: PCP Family Medicine; Visit Provider Surgery | DX: Z09 Encounter for follow-up examination after completed treatment for conditions other than malignant neoplasm (principal); K56.699 Other intestinal obstruction unspecified as to partial versus complete obstruction; N42.9 Disorder of prostate, unspecified; Q55.9 Congenital malformation of male genital organ, unspecified; D37.4 Neoplasm of uncertain behavior of colon | CPT/HCPCS: 99214 ==

== ENCOUNTER 2024-07-29 12:59 | Emergency (ER) | payer MEDICARE, SELFPAY ==
[2024-07-29 13:52] VITALS: BP 147/72; PULSE 67; RESP 18; TEMP 36.9; O2SAT 99; BMI 26.4
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
[2024-07-29 16:04] VITALS: BP 138/68; PULSE 72; RESP 18; O2SAT 99
== END 2024-07-29 16:06 | disposition home or self-care (01) ==
PROVIDERS: Emergency Provider Physician Assistant; PCP Family Medicine
DX: Z04.1 Encounter for examination and observation following transport accident (principal); S00.03XA Contusion of scalp, initial encounter; S70.01XA Contusion of right hip, initial encounter; S20.211A Contusion of right front wall of thorax, initial encounter; I10 Essential (primary) hypertension; V86.59XA Driver of other special all-terrain or other off-road motor vehicle injured in nontraffic accident, initial encounter
CPT/HCPCS: 70450; 71101; 72125; 73502; 99284